=== PATIENT | female | born 1935 | race Two or more races ===

== ENCOUNTER 2016-09-22 05:07 | Inpatient (IN) | payer MEDICARE, MEDICAID ==
[~2016-09-22] VITALS: Ht 167.6 cm; Wt 59.0 kg
--- NOTE | 2016-09-22 05:15 | NUR ---
RECEIVED PT VIA WHEEL CHAIR WITH HER SON FOR SURGERY TODAY . PT UMU X4 . SPEAKS AMHARIC . SON AT BED SIDE ALL THE TIME . ORIENTED PT AND HER SON OF POC SURROUNDING INCLUDING MYSELF . PRE OP CHECKLIST AND PRE OP ADMISSION DONE PER INFORMATION PROVIDE BY SON . PT DISABLE ALMOST 40 YEARS PER SON . HE IS TAKING CARE . HE SIGNS CONSENT . MOM AGREE WITH THIS SURGERY .MRSA AND BLOOD PRBC DONE ALL PRE OP NEEDS MET . WILL CONTINUE POC
[2016-09-22] MEDS ORDERED: SECONDARY IV SET 1 EA INFUS.SET MC ONE ×2 (05:40→16:39)
[2016-09-22] MEDS ORDERED: IV SET PRIMARY 1 EA INFUS.SET MC ONE (05:40)
[2016-09-22] MEDS ORDERED: CEFAZOLIN SODIUM/DEXTROSE,ISO 50 ML IV ONE (05:40)
[2016-09-22] MEDS ORDERED: IV LR 1000 ML 1,000 ML ONE ×2 (05:40→09:03)
[2016-09-22] MEDS ORDERED: BUPIVACAINE MPF 0.5% W/EPI INJ 30 ML VIAL ONE (06:10)
[2016-09-22] MEDS ORDERED: BACITRACIN 50000 UNITS/VIAL ONE (06:10)
[2016-09-22] MEDS ORDERED: FENTANYL PF 100MCG/2ML AMPUL ONE ×2 (06:26→08:51)
[2016-09-22] MEDS ORDERED: ROCURONIUM BROMIDE 50 MG/5 ML ONE (06:28)
[2016-09-22] MEDS ORDERED: TRANEXAMIC ACID 3,000 MG in SODIUM CHLORIDE IRRIG SOLUTION 70 ML IR ONE (07:30)
--- NOTE | 2016-09-22 07:50 | NUR ---
PT HAS WHEEL CHAIR WITH CLOTHES . LABEL AND GIVEN TO SON Addendum: 09/22/16 at 0612 by NORY RUIZ RN UNKNOWN DOSE FOR HYDROCODONE PER SON WILL FOLLOW UP
[2016-09-22] MEDS ORDERED: OMEP40CA37 PO (07:51)
[2016-09-22] MEDS ORDERED: BUPIVACAINE 0.5 % PF 150 MG/30 ML VIAL ONE (08:53)
[2016-09-22] MEDS ORDERED: HYDROMORPHONE 1 MG/1 ML DISP.SYRIN ONE ×2 (09:11→09:18)
[2016-09-22] MEDS ORDERED: SENNOSIDES 8.6 MG TABLET PO PRN (09:30)
[2016-09-22] MEDS ORDERED: BISACODYL SUPP (10 MG) 10 MG/SUPP.RECT SUPP.RECT RC PRN (09:30)
[2016-09-22] MEDS ORDERED: DOCUSATE SODIUM 250 MG CAPSULE PO PRN (09:30)
[2016-09-22] MEDS ORDERED: ZOLPIDEM TARTRATE 5 MG TABLET PO PRN (09:30)
--- NOTE | 2016-09-22 09:45 | NUR ---
RN MS NOTES PATIENT RECEIVED FROM OR DEPARTMENT, ALERT AND ORIENTED, COMPLAINING OF PAIN ON LEFT SHOULDER, NO RESPIRATORY DISTRESS NOTED, VITAL SIGNS STABLE, NEEDS ATTENDED, PIV ON RFA #18G PATENT AND INTACT, RECEIVED ORDERS FROM DR. STERN, NOTED AND CARRIED OUT. ENSURE SAFETY AND COMFORT, CALL LIGHT WITHIN REACH, WILL CONTINUE TO MONITOR.
[2016-09-22 09:50] VITALS: BP 121/71
[2016-09-22] MEDS ORDERED: IV SET PRIMARY PUMP SET 1 EA INFUS.SET MC ONE (10:24)
[2016-09-22] MEDS: HYDROCODONE/APAP 5/325MG 1 EACH TABLET PO PRN ×2 (10:29→17:34)
[2016-09-22] MEDS: IV D5/0.45 NACL 1,000 ML IV PRN ×2 (10:35→23:44)
[2016-09-22 10:47] LABS: BASOPHILS % (AUTO) 0.3 % (0.0-2.0); EOSINOPHILS % (AUTO) 0.3 % (0.0-6.0); HEMATOCRIT 35 % (33-45); HEMOGLOBIN 11.6 g/dL (11.5-14.8); LYMPHOCYTES # (AUTO) 0.8 /CMM (0.8-4.8); MEAN CORPUSCULAR HEMOGLOBIN 28 PG (26.0-33.0); MEAN CORPUSCULAR HGB CONC 33 g/dl (31.0-36.0); MEAN CORPUSCULAR VOLUME 85 fL (82-100); MONOCYTES # (AUTO) 0.1 /CMM (0.1-1.30); MONOCYTES % (AUTO) 2.2 % (2.0-12.0); NEUTROPHILS # (AUTO) 4.3 /CMM (1.8-8.9); NEUTROPHILS % (AUTO) 82.2 % (43.0-81.0); PLATELET COUNT (AUTO) 251 /CMM (150-450); RDW COEFFICIENT OF VARIATION 14.7 (11.5-15.0); RED BLOOD CELL COUNT(AUTO) 4.13 MIL/uL (4.0-5.2); WHITE BLOOD COUNT (AUTO) 5.3 K/uL (4.3-11.0)
--- NOTE | 2016-09-22 13:00 | NUR ---
RN MS NOTES PATIENT SEEN BY DR. ARCINIEGA, INFORMED OF 2 UNITS OF RBC ORDER, AND H&H RESULT, PER MD, DISREGARD BLOOD TRANSFUSION ORDER.
[2016-09-22] MEDS: ACETAMINOPHEN 325 MG TABLET PO PRN (14:41)
[2016-09-22] MEDS: ANCEF 1 GM/50 ML D5W IV SCH ×4 (16:41→22:43)
[2016-09-22] MEDS ORDERED: Z GUARD REMEDY 2 OZ OINT TP PRN (17:30)
--- NOTE | 2016-09-22 18:50 | NUR ---
RN MS NOTES PATIENT IN BED, ALERT AND ORIENTED, MARTINIQUAIS SPEAKING, NO RESPIRATORY DISTRESS, PATIENT'S PAIN LEVEL 2/10 ON LEFT SHOULDER, ABLE TO TOLERATE PAIN AT THIS TIME, REFUSES MEDICATION, PATIENT TURNED AND REPOSITIONED SCHEDULED, NEEDS ATTENDED AND MET, IV ON RIGHT FA PATENT AND INTACT, PATIENT NOTED WITH LEFT BUTTOCK WOUND, CLEANSED WITH NS AND COVERED WITH MEPILEX, Z-GUARD APPLIED ON THE SURROUNDING AREA FOR SKIN MANAGEMENT, SAFETY MEASURES IN PLACED, CALL LIGHT WITHIN REACH, WILL CONTINUE TO MONITOR.
--- NOTE | 2016-09-22 19:30 | NUR ---
MS RN INITIAL NOTE RECEIVED PT AWAKE AND ALERT, ORIENTED X3 WITH EPISODES OF CONFUSION, PT CURRENTLY HAS NO PAIN OR RESPIRATORY DISTRESS, CLEAN/DRY AND COMFORTABLE, WILL CONTINUE TO MONITOR CLOSELY.
[2016-09-22 20:00] VITALS: BP 145/88
[2016-09-22] MEDS ORDERED: diphenhydrAMINE HCL 25 MG CAPSULE PO PRN (22:00)
[2016-09-22] MEDS ORDERED: HYDROCODONE/APAP 10/325MG 1 EA TABLET PO PRN (22:00)
[2016-09-22] MEDS: ONDANSETRON HCL/PF 4 MG/2 ML VIAL IV PRN (23:53)
--- NOTE | 2016-09-23 | NUR ---
RN NOTES: PATIENT COMPLAINED OF NAUSEA. ADMINISTERED PRN ZOFRAN 4 MG IV. WILL CONT TO MONITOR.
[2016-09-23] MEDS: MORPHINE SULFATE INJ 2 MG/ML DISP.SYRIN IV PRN ×2 (03:33→10:10)
[2016-09-23] MEDS: ONDANSETRON HCL/PF 4 MG/2 ML VIAL IV PRN ×2 (06:04→17:11)
--- NOTE | 2016-09-23 06:51 | NUR ---
MS CLOSING NOTE PT REMAINED STABLE DURING PARIMUTUEL CLERK, NO SIGNIFICANT CHANGES NOTED IN PT'S CONDITION, ALL NEEDS HAVE BEEN MET, WILL ENDORSE TO INCOMING NURSE FOR TRINITY.
[2016-09-23 07:26] LABS: BASOPHILS % (AUTO) 0.3 % (0.0-2.0); HEMATOCRIT 33 % (33-45); HEMOGLOBIN 11.2 g/dL (11.5-14.8); LYMPHOCYTES # (AUTO) 1.1 /CMM (0.8-4.8); LYMPHOCYTES % (AUTO) 10.5 % (20.0-44.0); MEAN CORPUSCULAR HEMOGLOBIN 29 PG (26.0-33.0); MEAN CORPUSCULAR HGB CONC 34 g/dl (31.0-36.0); MEAN CORPUSCULAR VOLUME 85 fL (82-100); MONOCYTES # (AUTO) 0.8 /CMM (0.1-1.30); MONOCYTES % (AUTO) 7.9 % (2.0-12.0); NEUTROPHILS # (AUTO) 8.5 /CMM (1.8-8.9); NEUTROPHILS % (AUTO) 81.3 % (43.0-81.0); PLATELET COUNT (AUTO) 295 /CMM (150-450); RDW COEFFICIENT OF VARIATION 14.9 (11.5-15.0); RED BLOOD CELL COUNT(AUTO) 3.93 MIL/uL (4.0-5.2); WHITE BLOOD COUNT (AUTO) 10.5 K/uL (4.3-11.0)
[2016-09-23] MEDS: PANTOPRAZOLE 40 MG TABLET.DR PO SCH (07:38)
[2016-09-23 08:00] VITALS: BP 117/73
[2016-09-23 08:02] LABS: CALCIUM, SERUM 8.3 mg/dL (8.5-10.1); CREATININE 0.7 mg/dL (0.6-1.3); MAGNESIUM 1.7 mg/dL (1.8-2.4); PHOSPHORUS 3.7 mg/dL (2.5-4.9); POTASSIUM 4.5 mmol/L (3.5-5.1)
--- NOTE | 2016-09-23 08:23 | NUR ---
RN AM NOTES PATIENT RECEIVED IN BED, DROWSY, BUT EASILY AROUSABLE, A LITTLE NAUSEOUS, ZOFRAN GIVEN THIS MORNING. ABLE TO TOLERATE ONE PILL, BUT HAD ONE EPISODE OF CLEAR EMESIS THIS MORNING. ATTEMPTING TO EAT A LITTLE BREAKFAST SLOWLY. WILL CONTINUE TO MONITOR.
[2016-09-23] MEDS: DOCUSATE SODIUM 100 MG CAPSULE PO SCH ×2 (09:00→16:57)
[2016-09-23] MEDS: ASPIRIN EC 325 MG TABLET.DR PO SCH (09:17)
[2016-09-23] MEDS: Z GUARD REMEDY 2 OZ OINT TP SCH ×2 (09:22→09:26)
--- NOTE | 2016-09-23 10:18 | NUR ---
WOUND CARE CONSULT: PT PRESENTS WITH SACRAL ULCER, PRESENT ON ADMISSION AND RT 2ND TOE SCAB, ALSO PRESENT ON ADMISSION. RECOMMENDATIONS MADE FOR SACRAL ULCER AND SKIN PROTECTION. DISCUSSED WITH NURSING STAFF. PT ON RUPERTO ISOFLEX LOW AIRLOSS BED. ALL SKIN PROTECTION MEASURES IN PLACE. IN AGREEMENT WITH PLAN OF CARE. Addendum: 09/23/16 at 1024 by KELSIE SANCHEZ DPM CONSULT CALLED TO DR ESPINOZA BY DR MARTHA MORENO FOR RT 2ND TOE. Addendum: 09/23/16 at 1025 by KELSIE SANCHEZ Amended: Links added.
[2016-09-23] MEDS ORDERED: HYDROGEL DRESSING 90 GM TUBE TP PRN (10:30)
[2016-09-23] MEDS ORDERED: SECONDARY IV SET 1 EA INFUS.SET MC ONE (13:34)
[2016-09-23] MEDS: Magnesium 1GM/D5W 100ML PREMIX 100 ML IV SCH ×2 (13:41→13:42)
[2016-09-23 16:00] VITALS: BP 117/69
[2016-09-23] MEDS: HYDROGEL DRESSING 90 GM TUBE TP SCH (16:26)
--- NOTE | 2016-09-23 17:14 | NUR ---
PATIENT STILL WITH NO BOWEL MOVEMENT, ENCOURAGED TO TAKE COLACE, PATIENT AGREED. PATIENT COMPLAINED OF NAUSEA AND HEADACHE, ADMINISTERED MEDICATION ORDERED AND NEEDED. ENCOURAGED PATIENT TO EAT, WANTS TO EAT SLOWLY. TOLERATING IV FLUIDS WELL, CHANGED DRESSING AT IV SITE BECAUSE SOILED. WOUND CARE AND SPONGE BATH RENDERED. PATIENT IN STABLE CONDITION, SAFELY IN BED WITH CALL LIGHT, PHONE AND SIDE TABLE WITHIN REACH. 2 1/2 SIDE RAILS UP FOR SAFETY. WILL CONTINUE TO MONITOR.
[2016-09-23] MEDS: ACETAMINOPHEN 325 MG TABLET PO PRN (17:19)
--- NOTE | 2016-09-23 19:09 | NUR ---
RN PM NOTES PATIENT IN BED ASLEEP, BUT FULLY AROUSABLE, TOLERATED PIV FLUIDS, WAS ABLE TO EAT LITTLE BITS OF FOOD THROUGHOUT DAY. NO COMPLAINTS OF PAIN, NAUSEA INTERMITTENTLY, MEDICATION ADMINISTERED ORDERED. WILL ENDORSE TO NEXT SHIFT.
--- NOTE | 2016-09-23 19:30 | NUR ---
MS RN INITIAL NOTE RECEIVED PT COMFORTABLY SLEEPING, EASILY AROUSED, ORIENTED X3, ARABIC SPEAKING MOSTLY, NO COMPLAIN OF PAIN, LUNGS SOUND CLEAR ON AUSCULTATION, NO RESPIRATORY DISTRESS NOTED DURING PHYSICAL ASSESSMENT, PT IS CLEAN/DRY, SAFETY MEASURES WILL BE MAINTAINED AT ALL TIMES, NEEDS WILL BE ANTICIPATED AND ATTENDED TO PROMPTLY.
[2016-09-23 20:00] VITALS: BP_SYST 103; BP_SYST 125; BP_DIAS 57; BP_DIAS 61
--- NOTE | 2016-09-23 22:24 | NUR ---
PT IS CURRENTLY SLEEPING NO SIGNS OF PAIN OR RESPIRATORY DISTRESS NOTED, REPORT GIVEN TO SANDOR SOTELO FOR TRINITY.
--- NOTE | 2016-09-23 22:30 | NUR ---
MS/RN NOTES RECEIVED PT ASLEEP, HOB ELEVATED. ON ROOM AIR, NO S/S OF DISTRESS OR PAIN NOTED. ON 2LPM O2 VIA NC. DRESSING TO LEFT SHOULDER C/D/I, MD TO CHANGE TOMORROW. IV TO RIGHT FA RUNNING IVF ORDERED. NO S/S OF N/V AT THIS TIME. BED IN LOW/LOCKED POSITION WITH CALL LIGHT IN REACH. BED RAILS UPX2 AND ALARM ON. WILL CONTINUE TO MONITOR
--- NOTE | 2016-09-24 03:45 | NUR ---
MS/RN NOTES PT AWAKE, SLING TO LEFT ARM REMAINS IN PLACE. WARM BLANKET AND SANDWICH PROVIDED. ADJUSTED BED FOR COMFORT. MADE PT COMFORTABLE AND PT ABLE TO FALL BACK ASLEEP. OFFERED PAIN MEDICATION BUT PT REFUSING AT THIS TIME. WILL CONTINUE TO MONITOR
--- NOTE | 2016-09-24 06:50 | NUR ---
MS/RN CLOSING NOTES PT ASLEEP, EASILY AROUSABLE TO NAME. ON 2LPM 02 VIA NC, NO DISTRESS NOTED. BREATHING IS EVEN AND UNLABORED. MONGOLIAN SPEAKING BUT UNDERSTANDS SOME BENGALI. ENCOURAGED PT TO USE INCENTIVE SPIROMETER WHILE AWAKE DURING THE NIGHT. SKIN CARE PERFORMED TO SACRAL WOUND. TURNED/REPOSITIONED Q2H AND PRN. OFFLOADED EXTREMITIES. DRESSING TO LEFT SHOULDER REMAINS C/D/I WITH LEFT ARM IN SPLINT. IV TO RIGHT FA PATENT AND INTACT RUNNING IVF ORDERED. SANDWICH PROVIDED DURING SHIFT WITH NO COMPLAINTS OF N/V. NO COMPLAINTS OF PAIN AT THIS TIME. BED IN LOW/LOCKED POSITION WITH CALL LIGHT IN REACH. BED RAILS UPX2 WITH ALARM ON. WILL ENDORSE TO AM SHIFT TRINITY.
[2016-09-24 07:41] LABS: BASOPHILS % (AUTO) 0.2 % (0.0-2.0); EOSINOPHILS % (AUTO) 0.2 % (0.0-6.0); HEMATOCRIT 30 % (33-45); HEMOGLOBIN 9.9 g/dL (11.5-14.8); LYMPHOCYTES # (AUTO) 1.1 /CMM (0.8-4.8); LYMPHOCYTES % (AUTO) 11.6 % (20.0-44.0); MEAN CORPUSCULAR HEMOGLOBIN 29 PG (26.0-33.0); MEAN CORPUSCULAR HGB CONC 33 g/dl (31.0-36.0); MEAN CORPUSCULAR VOLUME 86 fL (82-100); MONOCYTES # (AUTO) 0.6 /CMM (0.1-1.30); MONOCYTES % (AUTO) 7.1 % (2.0-12.0); NEUTROPHILS # (AUTO) 7.3 /CMM (1.8-8.9); NEUTROPHILS % (AUTO) 80.9 % (43.0-81.0); PLATELET COUNT (AUTO) 232 /CMM (150-450); RDW COEFFICIENT OF VARIATION 14.8 (11.5-15.0); RED BLOOD CELL COUNT(AUTO) 3.48 MIL/uL (4.0-5.2); WHITE BLOOD COUNT (AUTO) 9.1 K/uL (4.3-11.0)
[2016-09-24 08:00] VITALS: BP 123/69
--- NOTE | 2016-09-24 08:00 | NUR ---
RN Notes Received on bed awake, alert and oriented. Not in any form of distress. Denies headache or dizziness. With 02 inhalation at 2 lpm via nasal canula saturating at 97% with no SOB. 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 no bleeding noted. Able to move left upper extremity, still with pain. with good sensation and pulse on left upper extremity. with ongoing IVF of D5 1/2 NS at 75 cc/hr infusing well. IV access on right forearm patent and intact. no complain at this time.
[2016-09-24 08:03] LABS: CALCIUM, SERUM 7.6 mg/dL (8.5-10.1); CREATININE 0.8 mg/dL (0.6-1.3); MAGNESIUM 2.1 mg/dL (1.8-2.4); PHOSPHORUS 3.3 mg/dL (2.5-4.9); POTASSIUM 3.5 mmol/L (3.5-5.1)
[2016-09-24] MEDS: DOCUSATE SODIUM 100 MG CAPSULE PO SCH ×3 (09:00→17:00)
[2016-09-24] MEDS: PANTOPRAZOLE 40 MG TABLET.DR PO SCH (09:31)
[2016-09-24] MEDS: ASPIRIN EC 325 MG TABLET.DR PO SCH (09:31)
[2016-09-24] MEDS: Z GUARD REMEDY 2 OZ OINT TP SCH (09:32)
[2016-09-24] MEDS: HYDROGEL DRESSING 90 GM TUBE TP SCH (09:32)
[2016-09-24] MEDS: IV D5/0.45 NACL 1,000 ML IV PRN ×2 (09:36→23:33)
[2016-09-24 16:00] VITALS: BP 113/58
--- NOTE | 2016-09-24 18:50 | NUR ---
RN Notes Resting well. needs anticipated. no untoward symptom noted. Refused PT today, son at the bedside aware. Will endorse to shift supervisor melting nurse for the continuity of care.
--- NOTE | 2016-09-24 19:30 | NUR ---
RN NOTES RECEIVED PT IN BED,AWAKE,VERBALLY RESPONSIVE TO STIMULI. DENIES ANY PAIN WHEN ASKED. ON OXYGEN AT 2LPM VIA NC. NO ACUTE RESP. DISTRESS NOTED.RIGHT FOREARM IV ACCESS NOTED, INTACT AND PATENT WITH IVF INFUSING WELL AT 75 CC/ HR. CLEAN AND DRY. FAMILY ON THE BEDSIDE. WILL CONTINUE TO MONITOR.
[2016-09-24 20:00] VITALS: BP 108/66
[2016-09-25 08:00] VITALS: BP 133/72
[2016-09-25] MEDS: HYDROGEL DRESSING 90 GM TUBE TP SCH (09:00)
[2016-09-25] MEDS: PANTOPRAZOLE 40 MG TABLET.DR PO SCH (09:36)
[2016-09-25] MEDS: DOCUSATE SODIUM 100 MG CAPSULE PO SCH (09:36)
[2016-09-25] MEDS: ASPIRIN EC 325 MG TABLET.DR PO SCH (09:36)
--- NOTE | 2016-09-25 13:45 | NUR ---
PT D/C'D PER AMBULANCE IN STABLE CONDITION....D/C WITH RX X 1 ON NORCO...IV D/C'D AT THIS TIME..NO HEMATOMA NOTED...REPORT ATTEMPTED X 2 TO [facility]....ENVELOPE FOLDING MACHINE ADJUSTER KEPT ON HOLD X 15 MIN....HUNG UP AND CALLED AGAIN AND WAS KEPT ON HOLD...CHARGE NURSE INFORMED AND STATES SEND HER ON OUT...WE WILL ATTEMPT LATER
== END 2016-09-25 13:30 | DRG 483 ==
LOC: DS 05:07 → MED 09:31
PROVIDERS: ADMIT Specialist; ATTEND Specialist
PROC: 0RRK00Z Replacement of Left Shoulder Joint with Reverse Ball and Socket Synthetic Substitute, Open Approach (ICD-10-PCS; principal; 2016-09-22 07:09)
DX: M12.812 Other specific arthropathies, not elsewhere classified, left shoulder (principal); K21.9 Gastro-esophageal reflux disease without esophagitis; E66.9 Obesity, unspecified; E83.42 Hypomagnesemia; I70.90 Unspecified atherosclerosis; L89.152 Pressure ulcer of sacral region, stage 2; G35 Multiple sclerosis; S81.802A Unspecified open wound, left lower leg, initial encounter; S81.801A Unspecified open wound, right lower leg, initial encounter; S43.002A Unspecified subluxation of left shoulder joint, initial encounter; Z96.649 Presence of unspecified artificial hip joint; Z68.21 Body mass index [BMI] 21.0-21.9, adult; Z71.6 Tobacco abuse counseling; Y92.009 Unspecified place in unspecified non-institutional (private) residence as the place of occurrence of the external cause; Y99.9 Unspecified external cause status; Y93.9 Activity, unspecified; X58.XXXA Exposure to other specified factors, initial encounter
CPT/HCPCS: 36415; 80048-TC; 83735-TC; 84100-TC; 85025-TC; 86850-TC; 86921-TC; 87081-TC; 88305-TC; 88311-TC; 94799-TC; 97001-TC; 97003-TC; 97110-TC; 97530-TC; A4217; A6248; A6402; J0690; J1100; J1170; J2270; J2405; J2704; J2710; J3010; J3475; J3490; J7060; J7120

== ENCOUNTER 2017-03-01 10:09 | Inpatient (IN) | payer MEDICARE, MEDICAID ==
[~2017-03-01] VITALS: Ht 165.1 cm; Wt 56.7 kg
[~2017-03-01 10:09] MED LIST: OMEP40CA37 PO
--- NOTE | 2017-03-01 10:58 | NUR ---
FOR MEDICAL CLEARANCE FOR GPS ADMISSION, NAD NOTED, VSS. WAITING FOR EVAL.
[2017-03-01 11:00] LABS: BASOPHILS % (AUTO) 0.5 % (0.0-2.0); EOSINOPHILS # (AUTO) 0.1 /CMM (0.0-0.7); HEMATOCRIT 38 % (33-45); HEMOGLOBIN 13.1 g/dL (11.5-14.8); LYMPHOCYTES # (AUTO) 1.3 /CMM (0.8-4.8); LYMPHOCYTES % (AUTO) 18.5 % (20.0-44.0); MEAN CORPUSCULAR HEMOGLOBIN 30 PG (26.0-33.0); MEAN CORPUSCULAR HGB CONC 35 g/dl (31.0-36.0); MEAN CORPUSCULAR VOLUME 86 fL (82-100); MONOCYTES # (AUTO) 0.4 /CMM (0.1-1.30); MONOCYTES % (AUTO) 5.4 % (2.0-12.0); NEUTROPHILS # (AUTO) 5.5 /CMM (1.8-8.9); NEUTROPHILS % (AUTO) 73.6 % (43.0-81.0); PLATELET COUNT (AUTO) 238 /CMM (150-450); RDW COEFFICIENT OF VARIATION 14.8 (11.5-15.0); RED BLOOD CELL COUNT(AUTO) 4.41 MIL/uL (4.0-5.2); WHITE BLOOD COUNT (AUTO) 7.3 K/uL (4.3-11.0)
[2017-03-01 11:11] LABS: CALCIUM, SERUM 8.8 mg/dL (8.5-10.1); CARBON DIOXIDE 29 mmol/L (21-32); CHLORIDE 109 mmol/L (98-107); CREATININE 0.7 mg/dL (0.6-1.3); GLUCOSE 94 mg/dL (74-106); SODIUM SERUM 142 mmol/L (136-145); UREA NITROGEN, BLOOD 18 mg/dL (7-18)
[2017-03-01 11:16] LABS: ALANINE AMINOTRANSFERASE 19 U/L (12-78); ALBUMIN 3.3 g/dL (3.4-5.0); ALKALINE PHOSPHATASE 123 U/L (46-116); ASPARTATE AMINOTRANSFERASE 17 U/L (15-37); BILIRUBIN,DIRECT 0.1 mg/dL (0.0-0.2); BILIRUBIN,TOTAL 0.3 mg/dL (0.2-1.0); TOTAL PROTEIN, SERUM 6.8 g/dL (6.4-8.2)
[2017-03-01 11:22] LABS: ACETAMINOPHEN 0 ug/ml (10-30); ALCOHOL, BLOOD < 3 mg/dL (0-0)
[2017-03-01] MEDS ORDERED: IBUP-1955 PO (11:35)
[2017-03-01] MEDS ORDERED: IV D5/0.45 NACL 1,000 ML IV PRN ×2 (12:13→15:28)
--- NOTE | 2017-03-01 12:23 | NUR ---
URINE SENT TO LAB
[2017-03-01] MEDS ORDERED: ZOLPIDEM TARTRATE 5 MG TABLET PO PRN ×3 (12:30→15:30)
[2017-03-01] MEDS ORDERED: MAGNESIUM HYDROXIDE 30 ML UDC PO PRN ×3 (12:30→15:30)
[2017-03-01] MEDS ORDERED: ACETAMINOPHEN 325 MG TABLET PO PRN ×2 (12:30→15:30)
[2017-03-01] MEDS ORDERED: ONDANSETRON HCL/PF 4 MG/2 ML VIAL IVP PRN ×2 (12:30→15:30)
[2017-03-01] MEDS ORDERED: MAG HYDROX/AL HYDROX/SIMETH 30 ML UDC PO PRN ×3 (12:30→15:30)
[2017-03-01] MEDS ORDERED: Z GUARD REMEDY 2 OZ OINT TP PRN ×3 (12:30→15:30)
[2017-03-01] MEDS ORDERED: HYDROCODONE/APAP 5/325MG 1 EACH TABLET PO PRN ×2 (12:30→15:30)
[2017-03-01 12:32] LABS: APPEARANCE,URINE Slightly Cloudy (CLEAR); BILIRUBIN,URINE Negative (NEGATIVE); BLOOD, URINE Moderate Ery/uL (NEGATIVE); COLOR,URINE Yellow (YELLOW); KETONES,URINE Negative (NEGATIVE); LEUKOCYTE ESTERASE ,URINE Small (NEGATIVE); NITRITE, URINE Negative (NEGATIVE); PH,URINE 6.5 (5.0-8.0); PROTEIN,URINE 100 mg/dl (NEGATIVE); UGLUCOSE Negative (NEGATIVE)
[2017-03-01 12:50] LABS: BACTERIA,URINE Many /HPF (None Seen); SQUAMOUS EPITHELIAL CELL,UR Moderate /HPF (None Seen)
[2017-03-01 13:05] LABS: AMYLASE 91 U/L (25-115); LIPASE 239 U/L (73-393)
[2017-03-01] MEDS ORDERED: SULFAMETH/TRIMETH 800/160 MG 1 UDTAB TABLET PO ONE (13:30)
--- NOTE | 2017-03-01 13:44 | NUR ---
REPORT GIVEN TO
--- NOTE | 2017-03-01 14:30 | NUR ---
MS RN NOTES RECEIVED PT FROM ER, DX FALL BY DR. THOMAS. WITH HX OF MULTIPLE SCLEROSIS, COMPLAINT OF WEAKNESS, AO X 2, AFGHAN SPEAKING, CAN MOVE ARMS, CAN SWALLOW, NEEDS ASSIST IN TRANSFER FROM CHAIR TO BED, ON ROOM AIR, NO SOB, DENIES PAIN, LEFT FA G22 WITH D5 1/2 NS AT 75 ML STARTED, SITE CLEAR. SEE NURSING FLOWSHEET FOR SKIN ISSUES, PHOTOS TAKEN, CARDIAC DIET, NEEDS ASSIST IN TURNING, UNIT ORIENTATION DONE AND USE OF CALL LIGHT. SAFETY MEASURES IN PLACE. ASHLEIGH CONT TO MONITOR.
[2017-03-01 15:00] VITALS: BP 147/79
[2017-03-01] MEDS: IV D5/0.45 NACL 1,000 ML IV PRN (15:17)
[2017-03-01 15:20] VITALS: BP 147/79
[2017-03-01] MEDS: ACETAMINOPHEN 325 MG TABLET PO PRN (15:44)
[2017-03-01 16:00] VITALS: BP 147/79
[2017-03-01] MEDS: CEFTRIAXONE 1 G in IV D5W 50 ML IV SCH (16:47)
--- NOTE | 2017-03-01 16:47 | NUR ---
MS RN NOTES STARTED ROCEPHIN IV.
[2017-03-01 18:00] VITALS: BP 147/79
--- NOTE | 2017-03-01 18:43 | NUR ---
MS RN NOTES PT RESTING COMFORTABLY. ALL NEEDS MET AT THIS TIME. IVF INFUSING WELL,NOT IN ANY DISTRESS. NO OTHER SIGNIFICANT CHANGE. SAFETY MEASURES IN PLACE. BED LOW LOCKED POSITION. CALL LIGHT WITHIN REACH. WILL ENDORSE TO NEXT SHIFT FOR [facility].
--- NOTE | 2017-03-01 19:05 | NUR ---
MS RN OPENING NOTES: RECEIVED PT AND IS RESTING COMFORTABLY IN BED. HOB ELEVATED. PT IS MALAWIAN SPEAKING AND UNDERSTANDING ONLY. PT CAN ONLY SPEAK A LITTLE BIT OF CYMRAES. PT IS A/OX2. PT APPEARS TO BE DEPRESSED. PT HAS L FOREARM #22G AND IS BEING INFUSED WITH D5 1/2 AT 75ML/HR. NO SOB OR S/S OF DISTRESS NOTED AT THIS TIME. CALL LIGHT WITHIN PT'S REACH. BED KEPT IN LOW, LOCKED POSITION AND SIDE RAILS X 2 UP. PT KEPT COMFORTABLE. WILL CONTINUE TO MONITOR PT.
[2017-03-01 20:00] VITALS: BP 108/55
[2017-03-01 20:04] VITALS: BP 108/55
[2017-03-02] MEDS: IV D5/0.45 NACL 1,000 ML IV PRN ×2 (05:11→21:22)
[2017-03-02 06:28] LABS: BASOPHILS % (AUTO) 0.3 % (0.0-2.0); EOSINOPHILS # (AUTO) 0.2 /CMM (0.0-0.7); EOSINOPHILS % (AUTO) 3.2 % (0.0-6.0); HEMATOCRIT 36 % (33-45); HEMOGLOBIN 11.9 g/dL (11.5-14.8); LYMPHOCYTES # (AUTO) 1.6 /CMM (0.8-4.8); LYMPHOCYTES % (AUTO) 21.7 % (20.0-44.0); MEAN CORPUSCULAR HEMOGLOBIN 29 PG (26.0-33.0); MEAN CORPUSCULAR HGB CONC 34 g/dl (31.0-36.0); MEAN CORPUSCULAR VOLUME 87 fL (82-100); MONOCYTES # (AUTO) 0.4 /CMM (0.1-1.30); MONOCYTES % (AUTO) 5.3 % (2.0-12.0); NEUTROPHILS # (AUTO) 5.1 /CMM (1.8-8.9); NEUTROPHILS % (AUTO) 69.5 % (43.0-81.0); PLATELET COUNT (AUTO) 225 /CMM (150-450); RDW COEFFICIENT OF VARIATION 16.2 (11.5-15.0); WHITE BLOOD COUNT (AUTO) 7.4 K/uL (4.3-11.0)
--- NOTE | 2017-03-02 06:37 | NUR ---
MS RN CLOSING NOTES: ALL NEEDS WERE ATTENDED AND ANTICIPATED FOR. OVERTIME, PT APPEARS LESS DEPRESSED. SHE WAS SEEN SMILING AND COOPERATIVE WHEN BEING TALKED TO. PT IS ONLY SLOVAK SPEAKING AND UNDERSTANDING. PT CAN ONLY SAY A FEW THINGS IN SENEGALESE. PT IS A/OX2. PT HAS L FOREARM #22G AND IS BEING INFUSED WITH D5 1/2 NS AT 75ML/HR. NO SOB OR S/S OF DISTRESS NOTED AT THIS TIME. EKG TAKEN BY RT THIS MORNING. CALL LIGHT WITHIN PT'S REACH. BED KEPT IN LOW, LOCKED POSITION, AND SIDE RAILS X 2 UP. PT KEPT CLEAN, DRY, AND COMFORTABLE. PT DOES NOT WANT TO CHANGE INTO THE GOWN. WILL ENDORSE TO AM NURSE FOR TRINITY.
[2017-03-02 07:06] LABS: ALANINE AMINOTRANSFERASE 15 U/L (12-78); ALBUMIN 2.8 g/dL (3.4-5.0); ALKALINE PHOSPHATASE 96 U/L (46-116); ASPARTATE AMINOTRANSFERASE 17 U/L (15-37); BILIRUBIN,TOTAL 0.3 mg/dL (0.2-1.0); CALCIUM, SERUM 8.3 mg/dL (8.5-10.1); CARBON DIOXIDE 25 mmol/L (21-32); CHLORIDE 108 mmol/L (98-107); CREATININE 0.7 mg/dL (0.6-1.3); GLUCOSE 92 mg/dL (74-106); PHOSPHORUS 3.6 mg/dL (2.5-4.9); POTASSIUM 3.8 mmol/L (3.5-5.1); SODIUM SERUM 140 mmol/L (136-145); TOTAL PROTEIN, SERUM 5.7 g/dL (6.4-8.2); UREA NITROGEN, BLOOD 15 mg/dL (7-18)
--- NOTE | 2017-03-02 07:10 | NUR ---
RN MS NOTES PATIENT ALERT AND ORIENTED X2-3, DENIES PAIN AT THIS TIME, BREATHING EVEN AND UNLABORED, NO DISTRESS NOTED, PIV PATENT AND FLUSHES WELL, IVF INFUSING AT 75ML/HR, TURNED AND REPOSITIONED, NEEDS ATTENDED AND MET, SAFETY MEASURES IN PLACED, CALL LIGHT WITHIN REACH, WILL CONTINUE TO MONITOR.
[2017-03-02 08:00] VITALS: BP 143/77
[2017-03-02] MEDS: ACETAMINOPHEN 325 MG TABLET PO PRN (08:22)
[2017-03-02 09:16] LABS: CHOLESTEROL 163 mg/dL (<200); HDL CHOLESTEROL 58 mg/dL (40-60); LDL 89 mg/dL (0-99); TRIGLYCERIDES 66 mg/dL (30-150)
[2017-03-02] MEDS: HYDROCODONE/APAP 5/325MG 1 EACH TABLET PO PRN (13:03)
--- NOTE | 2017-03-02 13:25 | NUR ---
WOUND CARE CONSULT: PT PRESENTS WITH RT LOWER BUTTOCK AND SACRAL SCARRING. PT ABLE TO ASSIST WITH TURNING AND REPOSITIONING IN BED. ALL SKIN PROTECTION MEASURES IN PLACE AND DISCUSSED WITH NURSING STAFF. WILL SEE PRN. ZARCO IN AGREEMENT WITH PLAN OF CARE.
[2017-03-02 16:00] VITALS: BP 113/68
[2017-03-02] MEDS: CEFTRIAXONE 1 G in IV D5W 50 ML IV SCH (16:44)
--- NOTE | 2017-03-02 18:54 | NUR ---
RN MS NOTES PATIENT ALERT AND ORIENTED, IN NO DISTRESS, IVF INFUSING AND TOLERATING WELL, ALL DUE MEDS GIVEN ORDERED, PT EVAL COMPLETED TODAY, ASSISTED PATIENT WITH TURNING AND REPOSITIONING, MEPILEX APPLIED TO SACRAL AREA FOR PROTECTION, NEEDS ATTENDED AND MET, CALL LIGHT WITHIN REACH, SAFETY MEASURES IN PLACED, WILL ENDORSE TO FORECLOSURE [place] FOR TRINITY.
--- NOTE | 2017-03-02 19:30 | NUR ---
RN NOTES RECEIVED PATIENT IN BED AWAKE, AO X 2, ABLE TO MAKE NEEDS KNOWN. NO ACUTE DISTRESS NOTED. DENIES ANY PAIN AT THIS TIME. IV SITE PATENT, INTACT; IVF INFUSING ORDERED. SAFETY REMINDERS GIVEN. ON LOW BED WITH BILATERAL UPPER SIDE RAILS UP. CALL LIGHT WITHIN EASY REACH. WILL CONTINUE TO MONITOR.
[2017-03-02 20:00] VITALS: BP_SYST 120; BP_SYST 188; BP_DIAS 74; BP_DIAS 78
[2017-03-02] MEDS: ONDANSETRON HCL/PF 4 MG/2 ML VIAL IVP PRN (21:17)
[2017-03-02 22:00] VITALS: BP 133/74
[2017-03-03] MEDS: HYDROCODONE/APAP 5/325MG 1 EACH TABLET PO PRN ×3 (03:09→15:13)
--- NOTE | 2017-03-03 07:00 | NUR ---
RN NOTES PATIENT ASLEEP, EASILY AROUSABLE. RESPIRATIONS EVEN. NO SIGNS OF PAIN NOTED. NEEDS ATTENDED. SAFETY PRECAUTIONS AND COMFORT MEASURES IN PLACE. WILL GIVE REPORT TO DAY SHIFT FOR CONTINUITY OF CARE.
--- NOTE | 2017-03-03 07:30 | NUR ---
RN OPENING NOTES RECEIVED PATIENT RESTING COMFORTABLY IN BED. PATIENT MONGOLIAN SPEAKING ONLY, UNDERSTANDS A LITTLE UKRAINIAN. NO ACUTE DISTRESS, NO SOB NOTED. IV SITE INTACT AND PATENT. KEPT PATIENT SAFE AND COMFORTABLE. BED IN LOW, LOCKED POSITION, SIDERAILS UP X2. CALL LIGHT IN REACH. WILL CONTINUE TO MONITOR ACCORDINGLY.
[2017-03-03 08:00] VITALS: BP 128/69
[2017-03-03] MEDS: ONDANSETRON HCL/PF 4 MG/2 ML VIAL IVP PRN (09:35)
[2017-03-03 11:51] LABS: BASOPHILS % (AUTO) 0.3 % (0.0-2.0); EOSINOPHILS % (AUTO) 0.4 % (0.0-6.0); HEMATOCRIT 39 % (33-45); HEMOGLOBIN 13.2 g/dL (11.5-14.8); LYMPHOCYTES # (AUTO) 0.2 /CMM (0.8-4.8); LYMPHOCYTES % (AUTO) 4.2 % (20.0-44.0); MEAN CORPUSCULAR HEMOGLOBIN 29 PG (26.0-33.0); MEAN CORPUSCULAR HGB CONC 33 g/dl (31.0-36.0); MEAN CORPUSCULAR VOLUME 87 fL (82-100); MONOCYTES # (AUTO) 0.2 /CMM (0.1-1.30); MONOCYTES % (AUTO) 2.8 % (2.0-12.0); NEUTROPHILS % (AUTO) 92.3 % (43.0-81.0); PLATELET COUNT (AUTO) 176 /CMM (150-450); RDW COEFFICIENT OF VARIATION 16.1 (11.5-15.0); RED BLOOD CELL COUNT(AUTO) 4.53 MIL/uL (4.0-5.2); WHITE BLOOD COUNT (AUTO) 5.4 K/uL (4.3-11.0)
[2017-03-03 12:01] LABS: CALCIUM, SERUM 8.3 mg/dL (8.5-10.1); CARBON DIOXIDE 22 mmol/L (21-32); CHLORIDE 106 mmol/L (98-107); CREATININE 0.8 mg/dL (0.6-1.3); GLUCOSE 106 mg/dL (74-106); POTASSIUM 3.6 mmol/L (3.5-5.1); SODIUM SERUM 140 mmol/L (136-145); UREA NITROGEN, BLOOD 11 mg/dL (7-18)
[2017-03-03 16:00] VITALS: BP 90/51
[2017-03-03] MEDS: CEFTRIAXONE 1 G in IV D5W 50 ML IV SCH (16:22)
[2017-03-03] MEDS: IV D5/0.45 NACL 1,000 ML IV PRN (16:23)
[2017-03-03 18:00] VITALS: BP 90/51
--- NOTE | 2017-03-03 19:30 | NUR ---
RN CLOSING NOTES PATIENT IN BED RESTING. NO ACUTE DISTRESS, NO SOB NOTED. ALL NEEDS ATTENDED AND PROVIDED. KEPT PATIENT SAFE AND COMFORTABLE. BED LOCKED, LOW POSITION, SIDERAILS UPX2, CALL LIGHT WITHIN REACH. ENDORSED TO SENIOR PROCESS ANALYST RN FOR TRINITY.
[2017-03-03 20:00] VITALS: BP 109/60
--- NOTE | 2017-03-03 20:00 | NUR ---
RN NOTES RECEIVED PATIENT IN BED, ALERT AND ORIENTED X2, CALM, NO SOB, TOLERATING ROOM AIR, SP02 94%, UPPER SORBIAN SPEAKING ONLY, DENIES ANY PAIN AT THIS TIME, NO RESTLESSNESS, LUNG SOUNDS ARE CLEAR, ABDOMEN SOFT AND NON-TENDER, LEFT ARM PERIPHERAL LINE IS PATENT AND INFUSING WELL, BED ALARM TURNED ON, NEEDS ATTENDED, CALL LIGHT WITHIN REACH
[2017-03-03 20:43] VITALS: BP 109/60
[2017-03-04] MEDS: IV D5/0.45 NACL 1,000 ML IV PRN (04:46)
[2017-03-04 06:41] LABS: BASOPHILS % (AUTO) 0.4 % (0.0-2.0); EOSINOPHILS # (AUTO) 0.1 /CMM (0.0-0.7); EOSINOPHILS % (AUTO) 1.3 % (0.0-6.0); HEMATOCRIT 34 % (33-45); HEMOGLOBIN 11.8 g/dL (11.5-14.8); LYMPHOCYTES # (AUTO) 1.5 /CMM (0.8-4.8); LYMPHOCYTES % (AUTO) 21.6 % (20.0-44.0); MEAN CORPUSCULAR HEMOGLOBIN 30 PG (26.0-33.0); MEAN CORPUSCULAR HGB CONC 34 g/dl (31.0-36.0); MEAN CORPUSCULAR VOLUME 87 fL (82-100); MONOCYTES # (AUTO) 0.4 /CMM (0.1-1.30); MONOCYTES % (AUTO) 6.4 % (2.0-12.0); NEUTROPHILS # (AUTO) 4.8 /CMM (1.8-8.9); NEUTROPHILS % (AUTO) 70.3 % (43.0-81.0); PLATELET COUNT (AUTO) 194 /CMM (150-450); RDW COEFFICIENT OF VARIATION 16.1 (11.5-15.0); RED BLOOD CELL COUNT(AUTO) 3.96 MIL/uL (4.0-5.2); WHITE BLOOD COUNT (AUTO) 6.9 K/uL (4.3-11.0)
--- NOTE | 2017-03-04 06:44 | NUR ---
RN NOTES PATIENT RESTING COMFORTABLY IN BED, EASILY AROUSEABLE, NO SOB, NO DISTRESS, NO COMPLAIN OF PAIN, NO ADVERSE CHANGE OF CONDITION DURING SHIFT, SLEPT FOR 7 HOURS, LEFT FA PERIPHERAL LINE IS PATENT AND INFUSING WELL, NEEDS ATTENDED, CALL LIGHT WITHIN REACH.
[2017-03-04 07:14] LABS: CALCIUM, SERUM 8.3 mg/dL (8.5-10.1); CARBON DIOXIDE 27 mmol/L (21-32); CHLORIDE 107 mmol/L (98-107); CREATININE 0.7 mg/dL (0.6-1.3); GLUCOSE 94 mg/dL (74-106); POTASSIUM 4.1 mmol/L (3.5-5.1); SODIUM SERUM 140 mmol/L (136-145); UREA NITROGEN, BLOOD 11 mg/dL (7-18)
[2017-03-04 08:00] VITALS: BP 113/59
--- NOTE | 2017-03-04 08:00 | NUR ---
AM RN NOTES RECEIVED PT AWAKE, IN STABLE CONDITION, NO SOB OR DISTRESS NOTED, WILL MONITOR.
--- NOTE | 2017-03-04 09:39 | NUR ---
PT SEEN BY MOODY ABRAMS
[2017-03-04] MEDS: ACETAMINOPHEN 325 MG TABLET PO PRN (12:02)
[2017-03-04] MEDS ORDERED: CEFT1FRO2 IV (12:56)
[2017-03-04] MEDS ORDERED: ACET325T53 PO (12:56)
[2017-03-04] MEDS: CEFTRIAXONE 1 G in IV D5W 50 ML IV SCH (15:17)
--- NOTE | 2017-03-04 16:52 | NUR ---
PT DISCHARGED OT [facility] IN STABLE CONDITION, NO SOB OR DISTRESS NOTED, NO PAIN OR DISCOMFORT, EDUCATIONS DONE AND INSTRUCTIONS GIVEN(TRANSLATED IN KYRGYZ BY MADHAVI HERNANDEZ) ALL BELONGINGS GIVEN AND PT LEFT FLOOR SAFELY WITH AMBULANCE, REPORT GIVEN TO EVITA SOTELO AT SNF AND PT'S SON INFORMED ABOUT TRANSFER.
== END 2017-03-04 16:46 | DRG 690 ==
LOC: ER 10:15 → MEDSG2 14:22
PROVIDERS: ADMIT Internal Medicine; ATTEND Internal Medicine
DX: N39.0 Urinary tract infection, site not specified (principal); E44.0 Moderate protein-calorie malnutrition; D68.59 Other primary thrombophilia; E88.09 Other disorders of plasma-protein metabolism, not elsewhere classified; G35 Multiple sclerosis; E78.5 Hyperlipidemia, unspecified; K21.9 Gastro-esophageal reflux disease without esophagitis; M06.9 Rheumatoid arthritis, unspecified; Z96.649 Presence of unspecified artificial hip joint; Z68.20 Body mass index [BMI] 20.0-20.9, adult; B96.89 Other specified bacterial agents as the cause of diseases classified elsewhere; R51 Headache
CPT/HCPCS: 36415; 80048-TC; 80053-TC; 80061-TC; 80076-TC; 80305; 81000-TC; 82150-TC; 83690-TC; 83735-TC; 84100-TC; 85025-TC; 87040-TC; 87081-TC; 87086-TC; 93307-TC; 97110-TC; 97112-TC; 97530-TC; A4606; G0480; J0696; J2405; J3490; J7030; J7060; Z7610

== ENCOUNTER 2020-08-19 11:18 | Emergency (ER) | payer MEDICARE, OTHER ==
[~2020-08-19] VITALS: Ht 170.2 cm; Wt 41.7 kg
[~2020-08-19 11:18] MED LIST changes: +ACET325T53 PO; +AMIN30LI2 PO; +ASCO500C18 PO; +ASCO500T20 PO; +ASPI-605 PO; +CHOL100044 PO; +CHOL200026 PO; +Calcium Carb 600MG /Vit D PO; +DOCU-141 PO; +HYDR-4354 PO; +MAGN400O6 PO; +MULT-1185 PO; +OMEP40CA13 PO; -OMEP40CA37 PO
[2020-08-19] MEDS ORDERED: KETOROLAC TROMETHAMINE INJ 30 MG/ML VIAL ONE (11:31)
[2020-08-19] MEDS ORDERED: TYL2T PO (11:32)
[2020-08-19] MEDS ORDERED: ACET-2605 PO (11:32)
[2020-08-19] MEDS ORDERED: MIRT7.5T10 PO (11:32)
[2020-08-19] MEDS ORDERED: CALC500T13 PO (11:32)
[2020-08-19] MEDS ORDERED: OMEG-167 PO (11:32)
[2020-08-19] MEDS ORDERED: ACET-868 PO (11:32)
[2020-08-19] MEDS ORDERED: ONDA-97 PO (11:32)
[2020-08-19] MEDS: KETOROLAC TROMETHAMINE INJ 60 MG/2 ML VIAL IM ONE (11:35)
--- NOTE | 2020-08-19 11:37 | NUR ---
LORRAINE FROM [facility], [place] C/O R SIDED NECK PAIN FOR 1 WEEK. PT EYES CLOSED NON VERBAL, MOANING FOR PAIN. RR EVEN & UNLABORED. VSS. PT SEEN & EVAL'D BY DR. JUNE. MEDICATED FOR PAIN. WILL CONT TO MONITOR.
[2020-08-19] MEDS ORDERED: NAPR-1164 PO (12:08)
--- NOTE | 2020-08-19 12:17 | NUR ---
CALLED TRANSPORT [facility] ETA 15MINS.
--- NOTE | 2020-08-19 12:56 | NUR ---
REPORT GIVEN TO GET BARBOSA AT [facility] FOR [facility]. PT ENROUTE VIA S FOR TRINITY.
[2020-08-19 12:57] VITALS: BP 135/84
== END 2020-08-19 12:59 ==
LOC: ER 11:21
DX: M54.2 Cervicalgia (principal); G35 Multiple sclerosis; K21.9 Gastro-esophageal reflux disease without esophagitis; Z98.890 Other specified postprocedural states; Z79.899 Other long term (current) drug therapy
CPT/HCPCS: 72050; 96372; 99283; J1885

== ENCOUNTER 2020-09-25 13:35 | Inpatient (IN) | payer MEDICARE, OTHER ==
[~2020-09-25] VITALS: Ht 152.4 cm; Wt 41.3 kg
[~2020-09-25 13:35] MED LIST changes: +ACET-2605 PO; +ACET-868 PO; -ACET325T53 PO; -AMIN30LI2 PO; -ASCO500T20 PO; -ASPI-605 PO; +CALC500T13 PO; -CHOL100044 PO; -Calcium Carb 600MG /Vit D PO; -HYDR-4354 PO; +MIRT7.5T10 PO; -MULT-1185 PO; +NAPR-1164 PO; +OMEG-167 PO; -OMEP40CA13 PO; +ONDA-97 PO; +TYL2T PO
[2020-09-25] MEDS ORDERED: TRAM50TA2 PO (13:57)
[2020-09-25] MEDS ORDERED: AMIN30LI2 PO (13:57)
[2020-09-25] MEDS ORDERED: MULT-447 PO (13:57)
--- NOTE | 2020-09-25 14:00 | NUR ---
KATIE Kumar [address] from [facility] Hx recent fall-sent here for intractable pain. On room air, breathing evenly and unlabored. COnnected to the monitor and pulse ox. kept comfortable, will continue to monitor accordingly.
[2020-09-25] MEDS ORDERED: IV NS 0.9% 500 ML BAG IV ONE ×2 (14:30→16:00)
[2020-09-25 14:58] LABS: BASOPHILS % (AUTO) 0.4 % (0.0-2.0); EOSINOPHILS % (AUTO) 0.3 % (0.0-6.0); HEMATOCRIT 34 % (33-45); HEMOGLOBIN 11.6 g/dL (11.5-14.8); LYMPHOCYTES # (AUTO) 0.9 /CMM (0.8-4.8); LYMPHOCYTES % (AUTO) 12.6 % (20.0-44.0); MEAN CORPUSCULAR HGB CONC 34 g/dl (31.0-36.0); MEAN CORPUSCULAR VOLUME 92 fL (82-100); MONOCYTES # (AUTO) 0.3 /CMM (0.1-1.30); MONOCYTES % (AUTO) 3.9 % (2.0-12.0); NEUTROPHILS % (AUTO) 82.8 % (43.0-81.0); PLATELET COUNT (AUTO) 268 /CMM (150-450); WHITE BLOOD COUNT (AUTO) 7.2 K/uL (4.3-11.0)
[2020-09-25 15:19] LABS: CALCIUM, SERUM 9.3 mg/dL (8.5-10.1); CARBON DIOXIDE 25 mmol/L (21-32); CHLORIDE 106 mmol/L (98-107); CREATININE 0.4 mg/dL (0.6-1.3); GLUCOSE 92 mg/dL (74-106); POTASSIUM 4.7 mmol/L (3.5-5.1); SODIUM SERUM 139 mmol/L (136-145); UREA NITROGEN, BLOOD 25 mg/dL (7-18)
[2020-09-25 15:25] LABS: ALANINE AMINOTRANSFERASE 22 U/L (12-78); ALBUMIN 2.7 g/dL (3.4-5.0); ALKALINE PHOSPHATASE 128 U/L (46-116); ASPARTATE AMINOTRANSFERASE 18 U/L (15-37); BILIRUBIN,DIRECT 0.1 mg/dL (0.0-0.2); BILIRUBIN,TOTAL 0.3 mg/dL (0.2-1.0); LIPASE 374 U/L (73-393); TOTAL PROTEIN, SERUM 6.5 g/dL (6.4-8.2)
--- NOTE | 2020-09-25 15:47 | NUR ---
urine collected and sent to lab
[2020-09-25 16:27] LABS: BILIRUBIN,URINE NEGATIVE (NEGATIVE); COLOR,URINE AMBER (YELLOW); LEUKOCYTE ESTERASE ,URINE LARGE (NEGATIVE); NITRITE, URINE NEGATIVE (NEGATIVE); PROTEIN,URINE >=300 mg/dl (NEGATIVE); UGLUCOSE NEGATIVE (NEGATIVE); UROBILINOGEN,URINE 0.2 EU/dL (0.2)
[2020-09-25 16:30] LABS: PH,URINE 8.5 (5.0-8.0)
[2020-09-25 16:50] LABS: BACTERIA,URINE Many /HPF (None Seen); RBC,URINE 21-50 /HPF (0-2); SQUAMOUS EPITHELIAL CELL,UR Moderate /HPF (None Seen); URINE AMORPHOUS PHOSPHATES Many /HPF (None Seen); WBC,URINE 51-80 /HPF (0-3)
--- NOTE | 2020-09-25 16:52 | NUR ---
COVID SWABS DONE AND SENT TO THE LAB
[2020-09-25] MEDS ORDERED: MEROPENEM 1,000 MG in IV NS 0.9% 100 ML IV ONE (17:00)
--- NOTE | 2020-09-25 17:12 | NUR ---
GOT BED 105
[2020-09-25] MEDS ORDERED: MAG HYDROX/AL HYDROX/SIMETH 30 ML UDC PO PRN (17:30)
[2020-09-25] MEDS ORDERED: Z GUARD REMEDY 2 OZ OINT TP PRN (17:30)
[2020-09-25] MEDS ORDERED: MAGNESIUM HYDROXIDE 30 ML UDC PO PRN (17:30)
[2020-09-25] MEDS ORDERED: ONDANSETRON HCL/PF 4 MG/2 ML VIAL IVP PRN (17:30)
--- NOTE | 2020-09-25 17:54 | NUR ---
wheeled patient via gurney accompanied by EMT in no distress. RN assigned at bedside to assume care.
--- NOTE | 2020-09-25 19:00 | NUR ---
RN OPENING NOTE RECEIVED PATIENT IN BED RESTING ALERT ORIENTED X1 CONFUSED, VERBALLY RESPONSIVE,MOUTH WORDS,MED SURG MONITORING ON ROOM AIR 02;98% IV SITE IS ON RIGHT AC INTACT PATENT NS 0.9% RUNNING 75CC/HR INCONTINENT TO BOWEL/BLADDER,CRYING FOR PAIN UNABLE TO ACCESS PAIN LEVEL,DUE TO HER MENTAL STATUS,SAFETY MEASURE IMPLEMENT,BED IN LOW POSITION AND LOCKED BED ALARM IS ON CONTINUE TO MONITOR.
--- NOTE | 2020-09-25 19:29 | NUR ---
PT RECEIVED IN [place] FROM EMT AT 1754, NOTED IV IN R AC INTACT AND PATENT , PT AOX2 WITH UNINTELLIGIBLE SPEECH, RUNNING NS @ 75ML/HR
[2020-09-25] MEDS: CEFTRIAXONE 1 G in IV D5W 50 ML IV SCH (20:08)
[2020-09-25] MEDS: IV NS 0.9% 1,000 ML IV PRN (20:36)
[2020-09-25] MEDS: HYDROCODONE/APAP 5/325MG TABLET PO PRN (20:39)
[2020-09-25 22:00] VITALS: BP 129/73
--- NOTE | 2020-09-26 03:23 | NUR ---
RN NOTE REPORT GIVEN TO ADDIS SOTELO FOR CONTINUATION OF CARE.
--- NOTE | 2020-09-26 03:23 | NUR ---
RN NOTE: Rec'd report from ASHLEIGH Byrnes for TRINITY.
[2020-09-26 04:00] VITALS: BP 131/65
--- NOTE | 2020-09-26 04:30 | NUR ---
RN NOTE: Pt's temp noted to be 94.4. Pt placed on bear hugger. Will continue to monitor.
[2020-09-26] MEDS: HYDROCODONE/APAP 5/325MG TABLET PO PRN ×3 (05:28→23:07)
[2020-09-26 06:54] LABS: BASOPHILS % (AUTO) 0.4 % (0.0-2.0); EOSINOPHILS % (AUTO) 0.5 % (0.0-6.0); HEMATOCRIT 34 % (33-45); HEMOGLOBIN 11.4 g/dL (11.5-14.8); LYMPHOCYTES # (AUTO) 0.4 /CMM (0.8-4.8); LYMPHOCYTES % (AUTO) 7.1 % (20.0-44.0); MEAN CORPUSCULAR HGB CONC 34 g/dl (31.0-36.0); MEAN CORPUSCULAR VOLUME 92 fL (82-100); MONOCYTES # (AUTO) 0.4 /CMM (0.1-1.30); MONOCYTES % (AUTO) 5.9 % (2.0-12.0); NEUTROPHILS # (AUTO) 5.4 /CMM (1.8-8.9); NEUTROPHILS % (AUTO) 86.1 % (43.0-81.0); PLATELET COUNT (AUTO) 241 /CMM (150-450); RED BLOOD CELL COUNT(AUTO) 3.69 MIL/uL (4.0-5.2); WHITE BLOOD COUNT (AUTO) 6.2 K/uL (4.3-11.0)
[2020-09-26 07:27] LABS: CHOLESTEROL 179 mg/dL (<200); HDL CHOLESTEROL 72 mg/dL (40-60); LDL 85 mg/dL (0-99); TRIGLYCERIDES 79 mg/dL (30-150)
[2020-09-26 07:28] LABS: ALANINE AMINOTRANSFERASE 109 U/L (12-78); ALBUMIN 2.4 g/dL (3.4-5.0); ALKALINE PHOSPHATASE 251 U/L (46-116); ASPARTATE AMINOTRANSFERASE 138 U/L (15-37); BILIRUBIN,TOTAL 0.4 mg/dL (0.2-1.0); CALCIUM, SERUM 8.4 mg/dL (8.5-10.1); CARBON DIOXIDE 21 mmol/L (21-32); CHLORIDE 109 mmol/L (98-107); CREATININE 0.4 mg/dL (0.6-1.3); GLUCOSE 84 mg/dL (74-106); MAGNESIUM 1.8 mg/dL (1.8-2.4); PHOSPHORUS 3.2 mg/dL (2.5-4.9); POTASSIUM 4.2 mmol/L (3.5-5.1); SODIUM SERUM 139 mmol/L (136-145); UREA NITROGEN, BLOOD 17 mg/dL (7-18)
--- NOTE | 2020-09-26 07:30 | NUR ---
RN OPENING NOTES Patient received in bed and was sleeping upon arrival. No c/o pain or discomfort. Patient noted with right ac 18 gauze with normal saline running at 75cc/hour. Patient will be monitored. Call light with in reach.
[2020-09-26] MEDS: ASCORBIC ACID 500 MG TABLET PO SCH (08:10)
[2020-09-26] MEDS: DOCUSATE SODIUM 100 MG CAPSULE PO SCH ×2 (08:10→17:00)
[2020-09-26] MEDS: MULTIVIT W/MINERALS 1 TAB TABLET PO SCH (08:10)
[2020-09-26] MEDS: CHOLECALCIFEROL 1,000 UNIT TABLET (VIT D3) PO SCH (08:10)
[2020-09-26] MEDS: CALCIUM CARBONATE 500 MG TAB.CHEW PO SCH (08:10)
[2020-09-26] MEDS ORDERED: IOHEXOL-300 100 ML VIAL IV ONE (13:20)
[2020-09-26] MEDS ORDERED: IV NS 0.9% 250 ML IV ONE (13:20)
[2020-09-26] MEDS ORDERED: CT SWABBABLE VALVE TRANS SET 1 EA INFUS.SET MC ONE (13:20)
[2020-09-26] MEDS: IV NS 0.9% 1,000 ML IV PRN (14:27)
[2020-09-26 16:00] VITALS: BP 110/60
--- NOTE | 2020-09-26 18:59 | NUR ---
RN CLOSING NOTES Patient in bed currently and sleeping. Patient was given prn norco for pain in right side of the neck. Patient noted with right ac 18 gauze with normal saline running at 75cc/hour. Patient will be monitored. Call light with in reach.Will endorse to next shift for demarcus.
--- NOTE | 2020-09-26 19:30 | NUR ---
MS1 RN NOTES RECEIVED LYING COMFORTABLY ON BED,A/O X1,NO SOB,PRESENT IVF NS AT 75ML/HR RATE INFUSING WELL ON RAC VIA IV PUMP,SITE PATENT,NO S/S OF INFILTRATION NOTED.FALL RISK,BED ON LOWEST POSITION AND LOCKED,BED ALARM TRIGGERED,CALL LIGHT IN REACH,NEEDS ANTICIPATED.
--- NOTE | 2020-09-26 19:33 | NUR ---
MS1 RN NOTES DNR STATUS WITH POLST.
[2020-09-26 20:00] VITALS: BP 125/68
[2020-09-26] MEDS: CEFTRIAXONE 1 G in IV D5W 50 ML IV SCH (20:35)
[2020-09-26 22:00] VITALS: BP 125/68
--- NOTE | 2020-09-26 23:07 | NUR ---
MS1 RN NOTES PAIN MANAGEMENT C/O RIGHT NECK PAIN 5/10 ON PAIN SCALE,NORCO 5/325MG,1 TAB PO GIVEN ORDER FOR MODERATE PAIN.
[2020-09-27] MEDS: IV NS 0.9% 1,000 ML IV PRN ×2 (03:10→20:00)
[2020-09-27 04:30] VITALS: BP 128/66
--- NOTE | 2020-09-27 06:09 | NUR ---
MS1 RN NOTES AWAKE,WATCHING TV PROGRAM,PAIN MANAGEMENT EFFECTIVE,IVF IN PROGRESS,SITE REMAINS PATENT. DUE MEDS ADMINISTERED,ABLE TO SWALLOW WHOLE PILL.REPOSITION PER PROTOCOL.CALL LIGHT IN REACH,NEEDS ATTENDED.
--- NOTE | 2020-09-27 07:30 | NUR ---
MS SOTELO AM NOTES RECEIVED LYING COMFORTABLY, IN BED,A/O X1,NAURUAN SPEAKING, ON ROOM AIR, NO DISTRESS, NO SOB, RESPIRATION UNLABORED, WITH IVF NS AT 75ML/HR RATE INFUSING WELL ON RAC VIA IV PUMP,SITE CLEAR. FALL RISK,BED ON LOWEST POSITION AND LOCKED,BED ALARM TRIGGERED,CALL LIGHT IN REACH,NEEDS ANTICIPATED, WILL CONTINUE TO MONITOR..
[2020-09-27 08:00] VITALS: BP 149/77
[2020-09-27 08:14] LABS: ALANINE AMINOTRANSFERASE 89 U/L (12-78); ALBUMIN 2.3 g/dL (3.4-5.0); ALKALINE PHOSPHATASE 244 U/L (46-116); ASPARTATE AMINOTRANSFERASE 75 U/L (15-37); BILIRUBIN,TOTAL 0.2 mg/dL (0.2-1.0); CALCIUM, SERUM 8.4 mg/dL (8.5-10.1); CARBON DIOXIDE 22 mmol/L (21-32); CHLORIDE 110 mmol/L (98-107); CREATININE 0.5 mg/dL (0.6-1.3); GLUCOSE 69 mg/dL (74-106); POTASSIUM 3.8 mmol/L (3.5-5.1); SODIUM SERUM 140 mmol/L (136-145); TOTAL PROTEIN, SERUM 5.6 g/dL (6.4-8.2); UREA NITROGEN, BLOOD 13 mg/dL (7-18)
[2020-09-27] MEDS: CHOLECALCIFEROL 1,000 UNIT TABLET (VIT D3) PO SCH (08:55)
[2020-09-27] MEDS: DOCUSATE SODIUM 100 MG CAPSULE PO SCH ×2 (08:55→16:22)
[2020-09-27] MEDS: CALCIUM CARBONATE 500 MG TAB.CHEW PO SCH (08:55)
[2020-09-27] MEDS: MULTIVIT W/MINERALS 1 TAB TABLET PO SCH (08:55)
[2020-09-27] MEDS: ASCORBIC ACID 500 MG TABLET PO SCH (08:55)
--- NOTE | 2020-09-27 09:30 | NUR ---
RN NOTES DUE MEDS GIVEN DR. PALMA FOR PAIN MANAGEMENT AT BEDSIDE
[2020-09-27 10:00] VITALS: BP 130/72
[2020-09-27] MEDS: LIDOCAINE 5% (PATCH) 1 EA PATCH TP SCH (10:40)
--- NOTE | 2020-09-27 14:45 | NUR ---
RN NOTES SPOKE WITH STEPHANIE [PT'S SON] REGARDING MEDICAL RECORDS, PER SON, PATIENT HAS NO RECORDS AT [facility] AND WAS NOT SEEN THERE SINCE 2019. ACCORDING TO THE SON, SHE HAS 3 DOCTORS AND THAT HE WILL CALL THEM AND HAVE THE RECORDS FAXED TO [facility]. FAX NO: [phone].
[2020-09-27 16:00] VITALS: BP 127/77
--- NOTE | 2020-09-27 18:30 | NUR ---
MS RN CLOSING NOTES AWAKE,WATCHING TV PROGRAM,PAIN MANAGEMENT EFFECTIVE,IVF IN PROGRESS,SITE REMAINS PATENT. SWALLOW EVAL DONE THIS MORNING, PLACED ON PUREED DIET, CRUSH MEDS. ASPIRATION PRECAUTION. REPOSITION PER PROTOCOL.CALL LIGHT IN REACH,NEEDS ATTENDED. WILL ENDORSE TO NEXT SHIFT FOR [facility]INITY.
--- NOTE | 2020-09-27 19:30 | NUR ---
RN OPENING NOTES: RECEIVED PT A/OX1-2 IN BED RESTING COMFORTABLY. PATIENT IN NO S/SX OF ACUTE DISTRESS AT THIS TIME. NO SOB NOTED. PATIENT'S BREATHING IS EVEN AND UNLABORED. PATIENT IS ON ROOM AIR TOLERATING WELL; O2 SAT @ >95% AT THE TIME OF RECEIVED. PATIENT ON MS STATUS. ON BED REST BUT NOTED TO HAVE BED MOBILITY. PATIENT ON PUREED DIET; TOLERATES WELL. NOTED IV SITE ON R AC#18; PATENT, INTACT AND FLUSHING WELL; NO S/S OF INFECTION OR INFILTRATION. WITH IV FLUID RUNNING ORDERED. SAFETY MEASURES HAVE BEEN PROVIDED AND IMPLEMENTED. PATIENT BED ALARM IS ON. HEAD OF BED ELEVATED. BED IS LOCKED, IN LOWEST POSITION AND SIDE RAILS UP. CALL LIGHT WITHIN REACH OF THE PATIENT. APPLICABLE ISOLATION PRECAUTIONS IN PLACE. WILL CONTINUE TO MONITOR AND REASSESS FOR ANY CHANGES AND WILL CARRY OUT ANY ONGOING AND ACTIVE MD ORDER.
[2020-09-27 20:00] VITALS: BP 121/67
[2020-09-27] MEDS: CEFTRIAXONE 1 G in IV D5W 50 ML IV SCH (20:41)
--- NOTE | 2020-09-27 22:30 | NUR ---
RN NOTES NO CHANGE IN PATIENT CONDITION AT THIS TIME PATIENT VITALS STABLE, NO SIGNS OF ACUTE RESPIRATORY DISTRESS. WILL CONTINUE TO MONITOR AND REASSESS FOR ANY CHANGES THROUGHOUT THE SHIFT.
--- NOTE | 2020-09-28 03:30 | NUR ---
RN NOTES PATIENT REMAINS IN NO ACUTE RESPIRATORY DISTRESS AT THIS TIME, NO CHANGES TO CONDITION/STATUS. AM PATIENT CARE DONE. WILL CONTINUE TO MONITOR AND REASSESS FOR ANY CHANGES THROUGHOUT THE SHIFT
[2020-09-28 04:00] VITALS: BP 137/73
--- NOTE | 2020-09-28 06:52 | NUR ---
RN CLOSING NOTE: PATIENT REMAINS IN ROOM IN NO SIGNS OF RESPIRATORY DISTRESS, PATIENT STILL ON ROOM AIR;TOLERATING WELL SATURATING @ >95% SP02. SAFETY MEASURES IMPLEMENTED, BED IN LOWEST POSITION, LOCKED, SIDE RAILS UP, CALL LIGHT WITHIN REACH. ALL NEEDS AND ORDERS ADDRESSED DURING THE SHIFT. IV ACCESS MAINTAINED INTACT, SECURED AND FLUSHING WELL. ALL DUE MEDS GIVEN ORDERED & SCHEDULED ; PATIENT TOLERATED WELL. PATIENT KEPT CLEAN AND COMFORTABLE WITHIN THE SHIFT. PATIENT ENDORSED TO INCOMING SHIFT RN WITH STABLE VITAL SIGN AND FOR CONTINUITY OF CARE.
--- NOTE | 2020-09-28 07:30 | NUR ---
RN OPENING NOTE PT A/Ox2 LYING IN BED SEMIFOWLERS BREATHING RA SPO2 97%, NO SIGNS OR RESP DISTRESS OR SOB. PT STATES PAIN 4/10 ON RT/POSTERIOR NECK, LIDOCAINE PATCH SCHEDULED FOR 0900. PT HAS RAC #18 RUNNING NS @ 75 ML/HR, FLUSHED, PATENT NO S/S OF INFECTION OR INFILTRATION. PT INCONTINENT, HAS DIAPER IN PLACE. ALL P TSAFETY PRECAUTION IN PLACE, SR UP x2, BED LOCKED AND IN LOWEST POSITION, CALL LIGHT WITHIN REACH, BED ALARM ON. WILL CONT TO MONITOR
[2020-09-28 08:00] VITALS: BP 129/70
[2020-09-28] MEDS: CHOLECALCIFEROL 1,000 UNIT TABLET (VIT D3) PO SCH (08:58)
[2020-09-28] MEDS: DOCUSATE SODIUM 100 MG CAPSULE PO SCH ×2 (08:58→17:14)
[2020-09-28] MEDS: ASCORBIC ACID 500 MG TABLET PO SCH (08:58)
[2020-09-28] MEDS: LIDOCAINE 5% (PATCH) 1 EA PATCH TP SCH (08:58)
[2020-09-28] MEDS: CALCIUM CARBONATE 500 MG TAB.CHEW PO SCH (08:58)
[2020-09-28] MEDS: MULTIVIT W/MINERALS 1 TAB TABLET PO SCH (08:59)
--- NOTE | 2020-09-28 09:00 | NUR ---
RN NOTE' DR FULLER INFORMED OF PT URINE CX POSITIVE FOR E. COLI ESBL AND RESISTANCE TO PT'S SCHEDULED ROCEPHIN ABX
[2020-09-28 12:00] VITALS: BP 111/64
[2020-09-28] MEDS: IV NS 0.9% 1,000 ML IV PRN (12:55)
[2020-09-28] MEDS ORDERED: MEROPENEM 1 G in IV NS 0.9% 100 ML IV ONE (13:00)
[2020-09-28 16:00] VITALS: BP 125/64
[2020-09-28] MEDS: ACETAMINOPHEN 325 MG TABLET PO PRN (18:05)
--- NOTE | 2020-09-28 19:15 | NUR ---
RN CLOSING NOTE NO CHANGES TO PT DURING SHIFT, PT IS STABLE, BREATHING ON RA WITH NO SIGNS OF REP DISTRESS OR SOB SPO2 97%. PT GIVEN TYLENOL FOR NECK PAIN AT 1800. PT CT CHEST W/O CONTRAST TOMORROW. ALL PT SAFETY PRECAUTIONS IN PLACE, WILL ENDORSE TRINITY TO ONCOMING RN
[2020-09-28 20:00] VITALS: BP 93/50
--- NOTE | 2020-09-28 20:00 | NUR ---
RN MS OPENING NOTES: RECEIVED PT A/OX1-2 IN RESTING COMFORTABLY. NO S/SX OF ACUTE DISTRESS NO SOB NOTED. BREATHING IS EVEN AND UNLABORED. ON ROOM AIR TOLERATING WELL; SATING 96% TOLERATES WELL. NOTED IV SITE ON R AC#18; PATENT, INTACT AND FLUSHING WELL; NO S/S OF INFECTION OR INFILTRATION. WITH IV FLUID RUNNING ORDERED.NS AT 75CC/HR SAFETY MEASURES HAVE BEEN PROVIDED AND IMPLEMENTED. PATIENT BED ALARM IS ON. HEAD OF BED ELEVATED. BED IS LOCKED, IN LOWEST POSITION AND SIDE RAILS UP. CALL LIGHT WITHIN REACH OF THE PATIENT. APPLICABLE ISOLATION PRECAUTIONS IN PLACE. WILL CONTINUE TO MONITOR AND REASSESS FOR ANY CHANGES .
[2020-09-28] MEDS: MEROPENEM 1 G in IV NS 0.9% 100 ML IV SCH (20:10)
[2020-09-29] MEDS: IV NS 0.9% 1,000 ML IV PRN ×2 (03:26→17:48)
[2020-09-29 04:00] VITALS: BP 113/61
[2020-09-29] MEDS: MEROPENEM 1 G in IV NS 0.9% 100 ML IV SCH ×3 (04:17→20:07)
[2020-09-29] MEDS: HYDROCODONE/APAP 5/325MG TABLET PO PRN ×2 (04:35→12:19)
--- NOTE | 2020-09-29 07:30 | NUR ---
RN OPENING NOTE PT A/Ox2 LYING IN BED SEMIFOWLERS BREATHING RA SPO2 96%, NO SIGNS OR RESP DISTRESS OR SOB. PT STATES PAIN 5/10 ON RT/POSTERIOR NECK, LIDOCAINE PATCH SCHEDULED FOR 0900, WILL GIVE TYLENOL WELL. PT HAS RAC #18 RUNNING NS @ 75 ML/HR, FLUSHED, PATENT NO S/S OF INFECTION OR INFILTRATION. PT SCHCEDULED FOR CT SCAN OF [facility] W/O CONTRAST TODAY. PT INCONTINENT, HAS DIAPER IN PLACE. ALL PT SAFETY PRECAUTION IN PLACE, SR UP x2, BED LOCKED AND IN LOWEST POSITION, CALL LIGHT WITHIN REACH, BED ALARM ON. WILL CONT TO MONITOR
[2020-09-29 08:00] VITALS: BP 110/60
[2020-09-29 08:06] LABS: IMMUNOGLOBULIN A, SERUM 232 mg/dL (64-422); IMMUNOGLOBULIN G, SERUM 878 mg/dL (586-1602); IMMUNOGLOBULIN M, SERUM 30 mg/dL (26-217)
[2020-09-29 08:36] LABS: IRON, SERUM 40 ug/dl (50-175); TOTAL IRON BINDING CAPACITY 182 ug/dl (250-450)
[2020-09-29] MEDS: CHOLECALCIFEROL 1,000 UNIT TABLET (VIT D3) PO SCH (08:38)
[2020-09-29] MEDS: LIDOCAINE 5% (PATCH) 1 EA PATCH TP SCH (08:38)
[2020-09-29] MEDS: DOCUSATE SODIUM 100 MG CAPSULE PO SCH ×2 (08:38→17:48)
[2020-09-29] MEDS: MULTIVIT W/MINERALS 1 TAB TABLET PO SCH (08:39)
[2020-09-29] MEDS: ACETAMINOPHEN 325 MG TABLET PO PRN (08:39)
[2020-09-29] MEDS: ASCORBIC ACID 500 MG TABLET PO SCH (08:39)
[2020-09-29] MEDS: CALCIUM CARBONATE 500 MG TAB.CHEW PO SCH (08:39)
[2020-09-29 08:52] LABS: FERRITIN 59 ng/mL (8-388)
--- NOTE | 2020-09-29 11:30 | NUR ---
RN NOTE PT BACK FROM CT CHEST W/O CONTRAST IN STABLE CONDITION, ALL PT SAFETY MEASURES IN PLACE.
[2020-09-29 16:00] VITALS: BP 107/73
--- NOTE | 2020-09-29 18:10 | NUR ---
RN NOTE CALLED PT'S SON/PERSON TO NOTIFY REGARDING CT CHEST W CONTRAST CONSENT AND MRCP CHECKLIST SHEET; LEFT MESSAGE. WILL ENDORSE TO ONCOMING NURSE
--- NOTE | 2020-09-29 19:00 | NUR ---
RN CLOSING NOTE NO CHANGES TO PT STATUS DURING SHIFT. PT IN STABLE CONDITION WITH NO S/S OF RESP DISTRESS OR SOB. PT DENIES PAIN AT THIS TIME. ALL PT SAFETY PRECAUTIONS IN PLACE. WILL ENDORSE TRINITY TO ONCOMING NURSE
[2020-09-29 20:00] VITALS: BP 111/51
[2020-09-30 04:00] VITALS: BP 124/65
[2020-09-30] MEDS: MEROPENEM 1 G in IV NS 0.9% 100 ML IV SCH ×2 (05:26→17:07)
--- NOTE | 2020-09-30 07:10 | NUR ---
RN OPENING NOTES RECEIVED PT RESTING IN BED, AWAKE. A/O X2. STABLE ON RA, NO SOB OR ANY SIGNS OF RESPIRATORY DISTRESS. IV ACCESS AT R AC #18 INTACT AND PATENT. RUNNING NS @75 ML/HR, INFUSING WELL. [facility] SOFT DIET. SAFETY PRECAUTION IMPLEMENTED. CALL LIGHT WITHIN REACH. BED LOCKED AND IN LOWEST POSITION WITH SIDE RAILS UP X3. BED ALARM ON. WILL CONTINUE TO MONITOR.
[2020-09-30 07:49] LABS: THYROID STIMULATING HORMONE 4.334 uIU/mL (0.358-3.74)
[2020-09-30] MEDS: CALCIUM CARBONATE 500 MG TAB.CHEW PO SCH (08:54)
[2020-09-30] MEDS: CHOLECALCIFEROL 1,000 UNIT TABLET (VIT D3) PO SCH (08:54)
[2020-09-30] MEDS: DOCUSATE SODIUM 100 MG CAPSULE PO SCH ×2 (08:54→17:07)
[2020-09-30] MEDS: FERROUS SULFATE (325 MG) 325 MG/TAB TABLET PO SCH ×2 (08:54→17:07)
[2020-09-30] MEDS: LIDOCAINE 5% (PATCH) 1 EA PATCH TP SCH (08:54)
[2020-09-30] MEDS: ASCORBIC ACID 500 MG TABLET PO SCH (08:54)
[2020-09-30] MEDS: MULTIVIT W/MINERALS 1 TAB TABLET PO SCH (08:54)
[2020-09-30] MEDS: IV NS 0.9% 1,000 ML IV PRN (09:05)
[2020-09-30 12:00] VITALS: BP 126/59
[2020-09-30] MEDS ORDERED: MEROPENEM 500 MG in IV NS 0.9% 100 ML IV SCH (13:00)
--- NOTE | 2020-09-30 14:04 | NUR ---
CONSENT PENDING FOR CT CHEST WITH CONTRAST EXAM.
[2020-09-30] MEDS: HYDROCODONE/APAP 5/325MG TABLET PO PRN (15:45)
[2020-09-30] MEDS: ENSURE ENLIVE 237 ML LIQUID (VANILLA) PO SCH (17:46)
--- NOTE | 2020-09-30 18:45 | NUR ---
RN CLOSING NOTE NO SIGNIFICANT CHANGES DURING SHIFT. IN STABLE CONDITION. STABLE ON ROOM AIR. NO PAIN REPORTED AT THIS TIME. SAFETY MEASURES STILL IN PLACE. WILL ENDORSE TO NIGHT NURSE FOR TRINITY.
[2020-09-30 20:00] VITALS: BP 106/60
[2020-10-01] MEDS: IV NS 0.9% 1,000 ML IV PRN ×2 (03:20→16:52)
[2020-10-01 04:00] VITALS: BP 114/64
[2020-10-01] MEDS: MEROPENEM 1 G in IV NS 0.9% 100 ML IV SCH ×2 (05:15→16:32)
[2020-10-01 07:06] LABS: *SPE ALBUMIN 2.7 g/dL (2.9-4.4); *SPE ALPHA-1-GLOBULIN 0.3 g/dL (0.0-0.4); *SPE ALPHA-2-GLOBULIN 0.7 g/dL (0.4-1.0); *SPE BETA GLOBULIN 0.9 g/dL (0.7-1.3); *SPE GLOBULIN, TOTAL 2.6 g/dL (2.2-3.9); *SPE M-SPIKE Not Observed g/dL (Not Observed); *SPEGAMMA GLOBULIN 0.7 g/dL (0.4-1.8)
--- NOTE | 2020-10-01 07:30 | NUR ---
RN OPENING NOTES PATIENT PRESENT IN BED, AWAKE, A//OX2, COMPLAINS ON NECK PAIN, ON ROOM AIR, SPO2 99%, NO SOB NOTED, IV LINE NOTED, FLUSHED AND PATENT, HOB ELEVATED, SAFETY PRECAUTIONS IN PLACE, WILL CONT TO MONITOR
[2020-10-01] MEDS: LIDOCAINE 5% (PATCH) 1 EA PATCH TP SCH (08:37)
[2020-10-01] MEDS: CHOLECALCIFEROL 1,000 UNIT TABLET (VIT D3) PO SCH (08:50)
[2020-10-01] MEDS: ASCORBIC ACID 500 MG TABLET PO SCH (08:50)
[2020-10-01] MEDS: CALCIUM CARBONATE 500 MG TAB.CHEW PO SCH (08:50)
[2020-10-01] MEDS: ACETAMINOPHEN 325 MG TABLET PO PRN (08:50)
[2020-10-01] MEDS: DOCUSATE SODIUM 100 MG CAPSULE PO SCH ×2 (08:50→16:32)
[2020-10-01] MEDS: MULTIVIT W/MINERALS 1 TAB TABLET PO SCH (08:50)
[2020-10-01] MEDS: FERROUS SULFATE (325 MG) 325 MG/TAB TABLET PO SCH ×2 (08:50→16:32)
[2020-10-01] MEDS: ENSURE ENLIVE 237 ML LIQUID (VANILLA) PO SCH ×3 (08:50→16:32)
--- NOTE | 2020-10-01 09:15 | NUR ---
PATIENT TAKEN TO ct SCAN W/CONTRAST VIA BED, CONSENT FORM SIGNED AND CHECKED
[2020-10-01] MEDS ORDERED: IOHEXOL-300 100 ML VIAL IV ONE (09:20)
[2020-10-01] MEDS ORDERED: IV NS 0.9% 250 ML IV ONE (09:20)
[2020-10-01] MEDS ORDERED: CT SWABBABLE VALVE TRANS SET 1 EA INFUS.SET MC ONE (09:20)
--- NOTE | 2020-10-01 09:42 | NUR ---
BACK FROM CT SCAN, TOLERATED WELL, CONNECTED TO FLUIDS, POSITIONED COMFORTABLY, SAFETY MEASURES IN PLACE, WILL CONT TO MONITOR
[2020-10-01 12:00] VITALS: BP 128/73
[2020-10-01 18:24] LABS: ALBUMIN 2.3 g/dL (3.4-5.0); BILIRUBIN,DIRECT 0.1 mg/dL (0.0-0.2); BILIRUBIN,TOTAL 0.4 mg/dL (0.2-1.0); TOTAL PROTEIN, SERUM 5.7 g/dL (6.4-8.2)
--- NOTE | 2020-10-01 19:03 | NUR ---
RN CLOSING NOTE RESTING COMFORTABLY, MEDICATIONS GIVEN, CLEANED AND REPOSITIONED, WILL ENDORSE TO PM SHIFT RN FOR TRINITY
--- NOTE | 2020-10-01 19:40 | NUR ---
RN OPENING NOTES RECD PT IN BED. A/O X2 URDU SPEAKING LITTLE CENTRAL AFRICAN, WATER RIGHTS SPECIALIST UTILIZED. PT IS ON ROOM AIR TOLERATING WELL. NO SOB OR RESP DISTRESS. PT ON MED SURG MONITORING. IV SITE FLUSHED. NO S.S OF INFILTRATION. ALL NEEDS ATTENDED DENIES PAIN. SAFETY MEASURES IN PLACE. HOB ELEVATED. SIDE RAILS UP X2, BED LOCKED IN LOWEST POSITION CALL LIGHT WITHIN REACH WILL CONT TO MONITOR
[2020-10-01 20:00] VITALS: BP 132/69
[2020-10-02 04:00] VITALS: BP 123/67
[2020-10-02] MEDS: MEROPENEM 1 G in IV NS 0.9% 100 ML IV SCH (05:09)
[2020-10-02 06:11] LABS: BASOPHILS % (AUTO) 0.7 % (0.0-2.0); EOSINOPHILS % (AUTO) 2.7 % (0.0-6.0); HEMATOCRIT 32 % (33-45); HEMOGLOBIN 11.1 g/dL (11.5-14.8); LYMPHOCYTES # (AUTO) 1.6 /CMM (0.8-4.8); LYMPHOCYTES % (AUTO) 26.7 % (20.0-44.0); MEAN CORPUSCULAR HGB CONC 35 g/dl (31.0-36.0); MEAN CORPUSCULAR VOLUME 91 fL (82-100); MONOCYTES # (AUTO) 0.5 /CMM (0.1-1.30); MONOCYTES % (AUTO) 7.7 % (2.0-12.0); NEUTROPHILS # (AUTO) 3.7 /CMM (1.8-8.9); NEUTROPHILS % (AUTO) 62.2 % (43.0-81.0); PLATELET COUNT (AUTO) 267 /CMM (150-450); RED BLOOD CELL COUNT(AUTO) 3.49 MIL/uL (4.0-5.2)
--- NOTE | 2020-10-02 07:04 | NUR ---
RN CLOSING NOTE NO SIGNIFICANT CHANGES IN PT CONDITION. STILL REMAINS ON ROOM AIR. NO DISTRESS NOTED. SAFETY MEASURES IN PLACE. IVF RUNNING ORDERED. NO S.S OF INFILTRATION. HOB ELEVATED. SIDE RAILS UP X2, BED LOCKED IN LOWEST POSITION. CALL LIGHT WITHIN REACH. WILL ENDORSE TO AM NURSE FOR CONT OF CARE.
--- NOTE | 2020-10-02 07:20 | NUR ---
RN OPENING NOTES PT RECEIVED IN BED RESTING IN LEFT LATERAL POSITION. PATIENT A/O X2 GEORGIAN SPEAKING LITTLE UGANDAN. PT IS ON ROOM AIR TOLERATING WELL. NO SOB OR RESP DISTRESS. IV SITE FLUSHED. NO S/S OF INFILTRATION. SAFETY MEASURES IMPLEMENTED, SIDE RAILS UP X2, BED LOCKED IN LOWEST POSITION, CALL LIGHT WITHIN REACH. WILL CONTINUE TO MONITOR AND PROVIDE CARE THROUGHOUT SHIFT.
[2020-10-02] MEDS: CALCIUM CARBONATE 500 MG TAB.CHEW PO SCH (09:50)
[2020-10-02] MEDS: DOCUSATE SODIUM 100 MG CAPSULE PO SCH (09:50)
[2020-10-02] MEDS: LIDOCAINE 5% (PATCH) 1 EA PATCH TP SCH (09:51)
[2020-10-02] MEDS: ENSURE ENLIVE 237 ML LIQUID (VANILLA) PO SCH ×2 (09:51→13:07)
[2020-10-02] MEDS: CHOLECALCIFEROL 1,000 UNIT TABLET (VIT D3) PO SCH (09:51)
[2020-10-02] MEDS: ASCORBIC ACID 500 MG TABLET PO SCH (09:51)
[2020-10-02] MEDS: MULTIVIT W/MINERALS 1 TAB TABLET PO SCH (09:51)
[2020-10-02] MEDS: FERROUS SULFATE (325 MG) 325 MG/TAB TABLET PO SCH (09:51)
[2020-10-02] MEDS ORDERED: FERR325T28 PO (09:58)
[2020-10-02] MEDS ORDERED: MERO1VIA23 IV (09:58)
[2020-10-02 12:00] VITALS: BP 136/67
--- NOTE | 2020-10-02 18:35 | NUR ---
PATIENT DISCHARGED FROM HOSPITAL IN STABLE CONDITION. DISCHARGE INSTRUCTIONS AND PAPERWORK PROVIDED FOR CLIENT PRIOR TO DISCHARGE. CALLED AND GAVE REPORT TO EVY AT [facility]. PATIENT PICKED UP BY AMBULANCE FOR TRANSPORTATION. CARE TRANSFERRED OVER TO [facility].
== END 2020-10-02 16:56 | DRG 682 ==
LOC: ER 13:40 → MEDSG1 17:17
PROVIDERS: ADMIT Internal Medicine; ATTEND Family Medicine
DX: N17.0 Acute kidney failure with tubular necrosis (principal); G93.41 Metabolic encephalopathy; R53.2 Functional quadriplegia; N39.0 Urinary tract infection, site not specified; Z16.12 Extended spectrum beta lactamase (ESBL) resistance; J90 Pleural effusion, not elsewhere classified; R64 Cachexia; M46.22 Osteomyelitis of vertebra, cervical region; G35 Multiple sclerosis; Z86.16 Personal history of COVID-19; Z66 Do not resuscitate; Z20.822 Contact with and (suspected) exposure to COVID-19; E78.5 Hyperlipidemia, unspecified; K21.9 Gastro-esophageal reflux disease without esophagitis; M19.90 Unspecified osteoarthritis, unspecified site; Z91.81 History of falling; Z96.642 Presence of left artificial hip joint; Z79.899 Other long term (current) drug therapy; M48.02 Spinal stenosis, cervical region; B96.20 Unspecified Escherichia coli [E. coli] as the cause of diseases classified elsewhere; N32.89 Other specified disorders of bladder; D64.9 Anemia, unspecified; R74.01 Elevation of levels of liver transaminase levels; E04.2 Nontoxic multinodular goiter; F03.90 Unspecified dementia, unspecified severity, without behavioral disturbance, psychotic disturbance, mood disturbance, and anxiety; L89.90 Pressure ulcer of unspecified site, unspecified stage; I67.2 Cerebral atherosclerosis; I70.0 Atherosclerosis of aorta; M85.80 Other specified disorders of bone density and structure, unspecified site; M06.9 Rheumatoid arthritis, unspecified; N28.89 Other specified disorders of kidney and ureter
CPT/HCPCS: 36415; 70450-TC; 71045-TC; 71250-TC; 71260-TC; 72125-TC; 74178; 76536-TC; 76700-TC; 80048-TC; 80053-TC; 80061-TC; 80076-TC; 81001; 82728-TC; 82784; 83540-TC; 83615-TC; 83690-TC; 83735-TC; 84100-TC; 84155; 84165; 84439-TC; 84443-TC; 84484-TC; 85025-TC; 86334; 86800; 87081-TC; 87086-TC; 87186-TC; 92526; 92611-TC; G0378; J0696; J2185; J3490; J7030; J7050; J7060; Q9967; U0003

== ENCOUNTER 2020-11-20 15:16 | Inpatient (IN) | payer MEDICARE, OTHER ==
[~2020-11-20] VITALS: Ht 162.6 cm; Wt 40.4 kg
[~2020-11-20 15:16] MED LIST changes: +AMIN30LI2 PO; +FERR325T28 PO; +MERO1VIA23 IV; -MIRT7.5T10 PO; +MULT-447 PO; -NAPR-1164 PO; -ONDA-97 PO; +TRAM50TA2 PO
[2020-11-20 16:24] LABS: BASOPHILS # (AUTO) 0.1 K/uL (0.0-0.2); BASOPHILS % (AUTO) 0.8 % (0.0-2.0); EOSINOPHILS % (AUTO) 1.3 % (0.0-6.0); HEMATOCRIT 36 % (33-45); HEMOGLOBIN 11.8 g/dL (11.5-14.8); LYMPHOCYTES # (AUTO) 1.5 K/uL (0.8-4.8); LYMPHOCYTES % (AUTO) 22.3 % (20.0-44.0); MEAN CORPUSCULAR HGB CONC 33 g/dl (31.0-36.0); MEAN CORPUSCULAR VOLUME 91 fL (82-100); MONOCYTES # (AUTO) 0.5 K/uL (0.1-1.30); MONOCYTES % (AUTO) 7.2 % (2.0-12.0); NEUTROPHILS # (AUTO) 4.7 K/uL (1.8-8.9); NEUTROPHILS % (AUTO) 68.4 % (43.0-81.0); PLATELET COUNT (AUTO) 298 K/uL (150-450); RED BLOOD CELL COUNT(AUTO) 3.94 MIL/uL (4.0-5.2); WHITE BLOOD COUNT (AUTO) 6.9 K/uL (4.3-11.0)
--- NOTE | 2020-11-20 16:29 | NUR ---
Pt reclining in bed NO obvious distress. Smiles and is able to answer to simple questions
[2020-11-20] MEDS ORDERED: IV NS 0.9% 1,000 ML BAG IV ONE (16:30)
[2020-11-20 16:37] LABS: CALCIUM, SERUM 8.4 mg/dL (8.5-10.1); CARBON DIOXIDE 25 mmol/L (21-32); CHLORIDE 105 mmol/L (98-107); CREATININE 0.7 mg/dL (0.6-1.3); GLUCOSE 109 mg/dL (74-106); POTASSIUM 4.4 mmol/L (3.5-5.1); SODIUM SERUM 138 mmol/L (136-145); UREA NITROGEN, BLOOD 16 mg/dL (7-18)
[2020-11-20 16:42] LABS: ALANINE AMINOTRANSFERASE 67 U/L (12-78); ALBUMIN 2.5 g/dL (3.4-5.0); ALKALINE PHOSPHATASE 334 U/L (46-116); ASPARTATE AMINOTRANSFERASE 45 U/L (15-37); BILIRUBIN,DIRECT 0.1 mg/dL (0.0-0.2); BILIRUBIN,TOTAL 0.4 mg/dL (0.2-1.0); LIPASE 247 U/L (73-393); MAGNESIUM 2.2 mg/dL (1.8-2.4); TOTAL PROTEIN, SERUM 6.2 g/dL (6.4-8.2)
[2020-11-20] MEDS ORDERED: MAG HYDROX/AL HYDROX/SIMETH 30 ML UDC PO PRN (17:30)
[2020-11-20] MEDS ORDERED: Z GUARD REMEDY 2 OZ OINT TP PRN (17:30)
[2020-11-20] MEDS ORDERED: ONDANSETRON HCL/PF 4 MG/2 ML VIAL IVP PRN (17:30)
[2020-11-20] MEDS ORDERED: ACETAMINOPHEN 325 MG TABLET PO PRN (17:30)
[2020-11-20] MEDS ORDERED: MAGNESIUM HYDROXIDE 30 ML UDC PO PRN (17:30)
[2020-11-20] MEDS ORDERED: TEMAZEPAM 15 MG CAPSULE PO PRN (17:30)
[2020-11-20] MEDS ORDERED: ARGI1POW13 PO (17:38)
[2020-11-20] MEDS ORDERED: TRAM50TA2 PO (17:38)
[2020-11-20] MEDS ORDERED: FERR325T23 PO (17:38)
[2020-11-20] MEDS ORDERED: MEGE400O6 PO (17:38)
[2020-11-20 17:44] LABS: THYROID STIMULATING HORMONE 1.767 uIU/mL (0.358-3.74)
[2020-11-20] MEDS: ENOXAPARIN SODIUM 30 MG/0.3 ML DISP.SYRIN SQ SCH (18:30)
--- NOTE | 2020-11-20 19:22 | NUR ---
Awaiting admission. NO obvious distress report to Sally
--- NOTE | 2020-11-20 20:08 | NUR ---
MS 106
--- NOTE | 2020-11-20 20:20 | NUR ---
PT WAS TRANSFERRED TO 106 UNDER ACLS
[2020-11-20 20:25] VITALS: BP 92/56
[2020-11-20] MEDS: IV D5/ 0.9% NACL 1,000 ML IV PRN (20:50)
[2020-11-21] VITALS: BP 96/57
[2020-11-21 04:00] VITALS: BP 96/57
[2020-11-21 06:43] LABS: EOSINOPHILS % (AUTO) 1.2 % (0.0-6.0); HEMATOCRIT 31 % (33-45); HEMOGLOBIN 10.4 g/dL (11.5-14.8); LYMPHOCYTES # (AUTO) 1.4 K/uL (0.8-4.8); LYMPHOCYTES % (AUTO) 28.4 % (20.0-44.0); MEAN CORPUSCULAR HGB CONC 34 g/dl (31.0-36.0); MEAN CORPUSCULAR VOLUME 91 fL (82-100); MONOCYTES # (AUTO) 0.4 K/uL (0.1-1.30); MONOCYTES % (AUTO) 7.8 % (2.0-12.0); NEUTROPHILS % (AUTO) 61.6 % (43.0-81.0); PLATELET COUNT (AUTO) 230 K/uL (150-450); RED BLOOD CELL COUNT(AUTO) 3.42 MIL/uL (4.0-5.2); WHITE BLOOD COUNT (AUTO) 4.8 K/uL (4.3-11.0)
[2020-11-21 07:03] LABS: CALCIUM, SERUM 7.7 mg/dL (8.5-10.1); CARBON DIOXIDE 21 mmol/L (21-32); CHLORIDE 112 mmol/L (98-107); CREATININE 0.5 mg/dL (0.6-1.3); GLUCOSE 92 mg/dL (74-106); MAGNESIUM 2.1 mg/dL (1.8-2.4); PHOSPHORUS 2.9 mg/dL (2.5-4.9); POTASSIUM 3.7 mmol/L (3.5-5.1); SODIUM SERUM 142 mmol/L (136-145); UREA NITROGEN, BLOOD 13 mg/dL (7-18)
[2020-11-21 07:06] LABS: CHOLESTEROL 142 mg/dL (<200); HDL CHOLESTEROL 42 mg/dL (40-60); LDL 81 mg/dL (0-99); TRIGLYCERIDES 60 mg/dL (30-150)
[2020-11-21] MEDS: PANTOPRAZOLE 40 MG TABLET.DR PO SCH (07:30)
[2020-11-21] MEDS: ENSURE ENLIVE CHOC 237 ML CAN PO SCH ×3 (08:00→16:54)
--- NOTE | 2020-11-21 11:07 | NUR ---
WOUND CARE CONSULT: REVIEWED CHART, NURSING DOCUMENTATION AND PHOTOS WHICH INDICATE WOUNDS AND DISCOLORATIONS, PRESENT ON ADMISSION. DR MCGREGOR NOTIFIED OF SURGICAL CONSULT REQUEST. RECOMMENDATIONS MADE FOR SKIN PROTECTION. DISCUSSED WITH NURSING STAFF. MD IN AGREEMENT WITH PLAN OF CARE.
[2020-11-21 14:37] VITALS: BP 122/69
[2020-11-21] MEDS: ENOXAPARIN SODIUM 30 MG/0.3 ML DISP.SYRIN SQ SCH (17:01)
--- NOTE | 2020-11-21 19:35 | NUR ---
MS1 RN NOTES RECEIVED LYING COMFORTABLY ON BED,A/O X1-2,ABLE TO ANSWER SIMPLE QUESTION,BREATHING NON LABORED ,ON ROOM AIR.PRESENT IVF INFUSING WELL ON RIGHT FORE ARM SALINE LOCK,SITE PATENT.DRESSING TO SACRAL AREA INTACT AND DRY.REPOSITION PER PROTOCOL,CALL LIGHT IN REACH,NEEDS ANTICIPATED.
--- NOTE | 2020-11-21 19:35 | NUR ---
POC for Calorie count discussed with Resawyer. Diet changed to mechanical soft with ensure. Endorsed to Floridalma RN for continuation of care. No significant changes in patient condition. No S/S of respiratory distress on room air. Encouraged PO intake. Yessy-care with brief changed. Wound care precautions with repositioning q 2h. Peripheral IV right forearm 20 gauge patent infusing D5NS at 75 ml/h. No S/S infiltration. Safety measures in place. HOB elevated. Side rails up x 3. Bed locked in low position. Call light within reach.
[2020-11-21 20:00] VITALS: BP 92/50
[2020-11-22 04:00] VITALS: BP_SYST 107; BP_SYST 155; BP_DIAS 57; BP_DIAS 68
--- NOTE | 2020-11-22 04:00 | NUR ---
MS1 RN NOTES IV SITE LEAKING,NEW SALINE LOCK PLACE ON LEFT FOREARM #22,SAME IVF INFUSING.
[2020-11-22] MEDS: IV D5/ 0.9% NACL 1,000 ML IV PRN ×2 (04:13→17:58)
--- NOTE | 2020-11-22 06:27 | NUR ---
MS1 RN NOTES SLEPT WELL AT NIGHT,DENIES ANY DISCOMFORTS.IVF INFUSING WELL VIA IV PUMP.IN NO ACUTE DISTRESS,CALL LIGHT IN REACH,NEEDS ATTENDED.
--- NOTE | 2020-11-22 07:30 | NUR ---
RN NOTE PATIENT OBSERVED ON BED, AWAKE, ALERT AND ORIENTED X2, HOB ELEVATED FOR ASPIRATION PRECAUTION, BREATHING EVEN AND UNLABORED, FOR STRICT MEAL INTAKE MONITORING, IVF RUNNING AND INFUSING WELL, ASSISTED BY EXTRACTION SUPERVISOR WITH BREAKFAST AT THIS TIME, PATIENT MADE COMFORTABLE, BED WHEELS LOCK, SAFETY MEASURES OBSERVED, BED ALARM ON, WEIGHT PATIENT ORDERED, WILL CONTINUE TO MONITOR,
[2020-11-22 08:00] VITALS: BP 113/60
[2020-11-22] MEDS: ENSURE ENLIVE CHOC 237 ML CAN PO SCH ×3 (08:15→17:02)
[2020-11-22] MEDS: PANTOPRAZOLE 40 MG TABLET.DR PO SCH (08:16)
[2020-11-22] MEDS ORDERED: ACETAMINOPHEN 325 MG TABLET PO PRN ×3 (09:30)
[2020-11-22] MEDS ORDERED: TRAMADOL HCL 50 MG TABLET PO PRN (09:30)
[2020-11-22] MEDS ORDERED: MAGNESIUM HYDROXIDE 30 ML UDC PO PRN (09:30)
[2020-11-22] MEDS ORDERED: HOME MED MISCELLANEOUS XX SCH (09:30)
[2020-11-22] MEDS ORDERED: ACETAMINOPHEN ES 500 MG TABLET PO PRN (10:00)
[2020-11-22] MEDS: CHOLECALCIFEROL 1,000 UNIT TABLET (VIT D3) PO SCH (10:35)
--- NOTE | 2020-11-22 13:00 | NUR ---
RN NOTE SEEN BY ELISABET MCCLENDON, UA COLLECTED ORDERED, LABORATORY NOTIFIED ACQUIRED URINE SAMPLE.
[2020-11-22 15:08] LABS: BILIRUBIN,URINE NEGATIVE (NEGATIVE); COLOR,URINE YELLOW (YELLOW); LEUKOCYTE ESTERASE ,URINE NEGATIVE (NEGATIVE); NITRITE, URINE NEGATIVE (NEGATIVE); PH,URINE 6.5 (5.0-8.0); PROTEIN,URINE NEGATIVE (NEGATIVE); UGLUCOSE NEGATIVE (NEGATIVE)
[2020-11-22 15:14] LABS: BACTERIA,URINE 4+ /HPF (None Seen); RBC,URINE 0-2 /HPF (0-2); SQUAMOUS EPITHELIAL CELL,UR Few /HPF (None Seen)
[2020-11-22 16:00] VITALS: BP 105/59
[2020-11-22] MEDS: DOCUSATE SODIUM 100 MG CAPSULE PO SCH (17:12)
[2020-11-22] MEDS: PROSOURCE / PROSTAT (PYXIS) 30 ML UDC PO SCH (17:12)
[2020-11-22] MEDS: MEGESTROL ACETATE SUSP 400 MG/10 ML UDC PO SCH (17:12)
[2020-11-22] MEDS: FERROUS SULFATE (325 MG) 325 MG/TAB TABLET PO SCH (17:12)
[2020-11-22] MEDS: ENOXAPARIN SODIUM 30 MG/0.3 ML DISP.SYRIN SQ SCH (17:46)
[2020-11-22] MEDS: ARGININE/GLUTAMINE/CALCIUM BMB 1 EACH POWD.PACK PO SCH (17:55)
--- NOTE | 2020-11-22 18:37 | NUR ---
RN NOTE PATIENT OBSERVED IN BED, AWAKE ALERT AND ORIENTED X2, UNABLE TO VERBALIZE NEEDS, NEEDS ANTICIPATED, BREATHING EVEN AND UNLABORED, O2 SAT OF 98% ON ROOM AIR, ON STRICT CALORIE COUNT, FILLED OUT DIETARY SHEET ORDERED, LEFT CALORIE COUNT TO THE NURSES STATION WITH THE CHARGE NURSE ORDERED, ASSISTED WITH MEALS AND SUPPLEMENTED WITH ENSURE, PATIENT ON IVF HYDRATION ORDERED, PATENT AND INFUSING WELL, NO S/S OF INFILTRATION, PATIENT AFEBRILE AT THIS TIME. WOUND TREATMENT DONE ORDERED, EGD CONSENT OBTAINED WITH RP , PATIENT MADE COMFORTABLE, BED WHEELS LOCK, BED ALARM ON, CALL LIGHT WITHIN REACH, WILL CONTINUE TO MONITOR, WILL ENDORSE TO NOC SHIFT.
--- NOTE | 2020-11-22 19:15 | NUR ---
RN OPENING NOTE PATIENT RECEIVED IN BED, AWAKE, ALERT AND ORIENTED X2, HOB ELEVATED FOR ASPIRATION PRECAUTION, BREATHING EVEN AND UNLABORED, NO RESP. DISTRESS NOTED. DENIES ANY PAIN. STRICT MEAL INTAKE MONITORING, IVF RUNNING AND INFUSING WELL THROUGH (R) FA 20G. ON MECHANICAL SOFT DIET WITH FREQUENT INTAKE ENCOURAGEMENT. SAFETY MEASURES IMPLEMENTED. BED ALARM ON, BED LOWEST POSITION, CALL LIGHT WITHIN REACH AND SIDE RAILS UP X3. NO ACUTE DISTRESS NOTED AT THIS TIME. Addendum: 11/23/20 at 0554 by MACHELLE UMANA RN CURRENT INFUSING IV : LEFT FA IV 22G PATENT FLUSHED AND INTACT
[2020-11-22 20:00] VITALS: BP 91/53
[2020-11-23 04:00] VITALS: BP 105/62
[2020-11-23] MEDS: IV D5/ 0.9% NACL 1,000 ML IV PRN (05:22)
--- NOTE | 2020-11-23 06:41 | NUR ---
RN CLOSING NOTE PATIENT CURRENTLY IN BED AND RESTING. DENIES ANY PAIN. A/O X2 BREATHING EVEN AND UNLABORED, O2 SAT OF 98% ON ROOM AIR, ON STRICT CALORIE COUNT DURING MORNING MEALS AND SNACKS PRN. PATIENT ON IVF HYDRATION ORDERED AND TOLERATING WELL. (L) FA 22G IV PATENT AND INFUSING WELL, NO S/S OF INFILTRATION, PATIENT AFEBRILE AT THIS TIME. PATIENT KEPT CLEAN AND DRY THROUGHOUT SHIFT. WOUND TREATMENT DONE ORDERED AND TOLERATED WELL. SAFETY MEASURES IMPLEMENTED, BED WHEELS LOCK, BED ALARM ON, CALL LIGHT WITHIN REACH, HOB ELEVATED, SIDE RAILS UP X3. NO ACUTE DISTRESS NOTED AT THIS TIME, WILL ENDORSE CONTINUITY OF CARE TO MORNING SHIFT RN
--- NOTE | 2020-11-23 07:15 | NUR ---
RN NOTE PATIENT OBSERVED ON BED, AWAKE AND ORIENTED X2, VERBALLY RESPONSIVE, BREATHING EVEN AND UNLABORED, INCONTINENT ON BOWEL AND BLADDER, LEFT FOREARM IV F D5NS@75CC/HR, NO AM LABS WILL FOLLOW UP WITH MD, BED WHEELS LOCK, CALL LIGHT WITHIN REACH, SAFETY MEASURES OBSERVED, WILL CONTINUE TO MONITOR.
[2020-11-23 08:00] VITALS: BP 98/56
[2020-11-23] MEDS: PROSOURCE / PROSTAT (PYXIS) 30 ML UDC PO SCH (08:17)
[2020-11-23] MEDS: PANTOPRAZOLE 40 MG TABLET.DR PO SCH (08:18)
[2020-11-23] MEDS ORDERED: TRAMADOL HCL 50 MG TABLET PO SCH (09:00)
[2020-11-23] MEDS ORDERED: MULTIVITAMINS,THERAGRAN 1 UDTAB TABLET PO SCH (09:00)
[2020-11-23] MEDS ORDERED: CALCIUM CARBONATE 500 MG TAB.CHEW PO SCH (09:00)
[2020-11-23] MEDS ORDERED: ASCORBIC ACID 500 MG TABLET PO SCH (09:00)
[2020-11-23] MEDS: ENSURE ENLIVE CHOC 237 ML CAN PO SCH ×2 (09:08→12:11)
[2020-11-23] MEDS: DOCUSATE SODIUM 100 MG CAPSULE PO SCH (09:15)
[2020-11-23] MEDS: CHOLECALCIFEROL 1,000 UNIT TABLET (VIT D3) PO SCH (09:15)
[2020-11-23] MEDS: MEGESTROL ACETATE SUSP 400 MG/10 ML UDC PO SCH (09:15)
[2020-11-23] MEDS: FERROUS SULFATE (325 MG) 325 MG/TAB TABLET PO SCH (09:16)
[2020-11-23] MEDS: ARGININE/GLUTAMINE/CALCIUM BMB 1 EACH POWD.PACK PO SCH (09:35)
[2020-11-23 12:00] VITALS: BP 100/59
--- NOTE | 2020-11-23 16:21 | NUR ---
RN NOTE PATIENT DISCHARGE GAVE REPORT TO [facility] TO [facility] RN, PATIENT DISCHARGE ON STABLE CONDITION, VTS WNL NOT IN DISTRESS, TRANSPORTED VIA GURNEY.
[2020-11-23] MEDS ORDERED: ARGININE/GLUTAMINE/CALCIUM BMB 1 EACH POWD.PACK PO SCH (17:00)
== END 2020-11-23 16:20 | DRG 640 ==
LOC: ER 15:16 → MEDSG1 20:11
PROVIDERS: ADMIT Nurse Practitioner Acute Care; ATTEND Nurse Practitioner Acute Care
DX: R62.7 Adult failure to thrive (principal); L89.153 Pressure ulcer of sacral region, stage 3; E43 Unspecified severe protein-calorie malnutrition; Z68.1 Body mass index [BMI] 19.9 or less, adult; R64 Cachexia; E86.0 Dehydration; M06.9 Rheumatoid arthritis, unspecified; K21.9 Gastro-esophageal reflux disease without esophagitis; G35 Multiple sclerosis; E83.51 Hypocalcemia; Z20.822 Contact with and (suspected) exposure to COVID-19; Z86.16 Personal history of COVID-19; E78.5 Hyperlipidemia, unspecified; I10 Essential (primary) hypertension; Z91.81 History of falling; Z96.642 Presence of left artificial hip joint; Z79.899 Other long term (current) drug therapy; M19.90 Unspecified osteoarthritis, unspecified site; L89.226 Pressure-induced deep tissue damage of left hip; F03.90 Unspecified dementia, unspecified severity, without behavioral disturbance, psychotic disturbance, mood disturbance, and anxiety
CPT/HCPCS: 36415; 71045-TC; 80048-TC; 80061-TC; 80076-TC; 81001; 83690-TC; 83735-TC; 84100-TC; 84439-TC; 84443-TC; 84484-TC; 85025-TC; 85730-TC; 87086-TC; 92526; 92611-TC; G0378; J1650; J7042; U0003

== ENCOUNTER 2022-09-24 17:51 | Inpatient (IN) | payer MEDICARE, OTHER ==
[~2022-09-24] VITALS: Ht 152.4 cm; Wt 35.8 kg
[~2022-09-24 17:51] MED LIST changes: +ARGI1POW13 PO; +FERR325T23 PO; -FERR325T28 PO; +MEGE400O6 PO; -MERO1VIA23 IV
--- NOTE | 2022-09-24 18:30 | NUR ---
Patient brenda, from snf, sent by PMD for GT placement poor oral intake. Osorio cath in placed attached to drainage bag. Kept comfortable, will continue to monitor accordingly.
[2022-09-24] MEDS ORDERED: ACET-868 PO (18:32)
[2022-09-24] MEDS ORDERED: ASCO-352 PO (18:32)
[2022-09-24] MEDS ORDERED: POLY17PO4 PO (18:32)
[2022-09-24] MEDS ORDERED: MEGE625O5 PO (18:32)
[2022-09-24] MEDS ORDERED: CALC500T52 PO (18:32)
[2022-09-24] MEDS ORDERED: BISA10SU11 RC (18:32)
[2022-09-24] MEDS ORDERED: DOCU-141 PO (18:32)
[2022-09-24] MEDS ORDERED: MIRT7.5T10 PO (18:32)
[2022-09-24] MEDS ORDERED: PANT20TA17 PO (18:32)
[2022-09-24] MEDS ORDERED: ACET-2605 PO (18:32)
[2022-09-24] MEDS ORDERED: CHOL100043 PO (18:32)
[2022-09-24] MEDS ORDERED: MULT-447 PO (18:32)
[2022-09-24] MEDS ORDERED: SENN-261 PO (18:32)
[2022-09-24] MEDS ORDERED: TRAM50TA2 PO (18:32)
[2022-09-24] MEDS ORDERED: ARGI1POW13 PO (18:32)
[2022-09-24] MEDS ORDERED: ZINC50TA69 PO (18:32)
[2022-09-24] MEDS ORDERED: OMEG1CAP PO (18:32)
[2022-09-24 18:37] LABS: BASOPHILS # (AUTO) 0.1 K/uL (0.0-0.2); BASOPHILS % (AUTO) 0.6 % (0.0-2.0); EOSINOPHILS % (AUTO) 0.9 % (0.0-6.0); HEMATOCRIT 33 % (33-45); HEMOGLOBIN 10.2 g/dL (11.5-14.8); LYMPHOCYTES % (AUTO) 17.6 % (20.0-44.0); MEAN CORPUSCULAR HGB CONC 31 g/dl (31.0-36.0); MEAN CORPUSCULAR VOLUME 87 fL (82-100); MONOCYTES # (AUTO) 0.7 K/uL (0.1-1.30); MONOCYTES % (AUTO) 6.4 % (2.0-12.0); NEUTROPHILS # (AUTO) 8.3 K/uL (1.8-8.9); NEUTROPHILS % (AUTO) 74.5 % (43.0-81.0); PLATELET COUNT (AUTO) 442 K/uL (150-450); RED BLOOD CELL COUNT(AUTO) 3.74 MIL/uL (4.0-5.2); WHITE BLOOD COUNT (AUTO) 11.2 K/uL (4.3-11.0)
--- NOTE | 2022-09-24 18:40 | NUR ---
covid and MRSA swab collected and sent to lab
--- NOTE | 2022-09-24 18:48 | NUR ---
MOVE SHEET SUBMITTED.
[2022-09-24 18:51] LABS: CREATININE 0.9 mg/dL (0.6-1.3); POTASSIUM 4.5 mmol/L (3.5-5.1)
--- NOTE | 2022-09-24 19:28 | NUR ---
[facility] PAGED
[2022-09-24] MEDS ORDERED: IV NS 0.9% 1,000 ML IV ONE (19:30)
[2022-09-24 20:00] VITALS: BP 101/60
[2022-09-24] MEDS ORDERED: ACETAMINOPHEN 650 MG/SUPP.RECT RC PRN (20:30)
[2022-09-24] MEDS ORDERED: Z GUARD REMEDY 4 OZ OINT TP PRN (20:30)
[2022-09-24] MEDS ORDERED: ACETAMINOPHEN 325 MG TABLET PO PRN (20:30)
[2022-09-24] MEDS ORDERED: MAGNESIUM HYDROXIDE 30 ML UDC PO PRN (20:30)
[2022-09-24] MEDS ORDERED: ONDANSETRON HCL/PF 4 MG/2 ML VIAL IVP PRN (20:30)
--- NOTE | 2022-09-24 21:00 | NUR ---
Alma vargas in EDM - 09/24/22 at 2137 by ANISHA OLD IFC F16 REMOVED, REPLACED BY NEW IFC F16, MINIMAL OUTPUT. NOT ENOUGH FOR URINALYSIS
--- NOTE | 2022-09-24 21:17 | NUR ---
D/C FC FROM [facility]. INSERTED 16FR F/C.
--- NOTE | 2022-09-24 21:19 | NUR ---
REPORT GIVEN TO MENDOZA BERKOWITZ RN FOR TRINITY
--- NOTE | 2022-09-24 21:45 | NUR ---
PT TRANSFERRING TO [facility] VIA HOSPITAL PROTOCOL
[2022-09-24 22:00] VITALS: BP 101/60
--- NOTE | 2022-09-24 22:00 | NUR ---
ASSEMBLY LINE SUPERVISOR NOTE PATIENT WAS TRANSFERRED FROM THE ER , AND ADMITTED WITH PRIMARY DIAGNOSIS OF FAILURE TO THRIVE. PATIENT IS NPO DUE TO UNABLE TO SWALLOW, PATIENT HAS IV ACCESS OF THE LEFT AC ARM #18G 1/2 NS D5 RUNNING AT 75 ML/HR .PATIENT IS ON O2 VIA NC AT 2LPM, BREATHING NON LABORED , O2 SAT 98%. NOTED WITH FC IN PLACE DRAINING URINE TO GRAVITY. SKIN ASSESSMENT DONE, PICTURES TAKEN AND WILL BE PLACED ON CHART, ADMISSION CARE RENDERED, SAFETY MEASURES IN PLACED, INSTRUCTED PT TO USE CALL LIGHT FOR ASSISTANCE. WILL CONTINUE TO MONITOR THROUGHOUT THE SHIFT.
[2022-09-24] MEDS: IV D5/0.45 NACL 1,000 ML IV PRN (22:20)
[2022-09-24 23:08] LABS: COLOR,URINE DARK YELLOW (YELLOW)
[2022-09-24 23:09] LABS: BILIRUBIN,URINE NEGATIVE (NEGATIVE); PROTEIN,URINE 4+ mg/dl (NEGATIVE); UGLUCOSE NEGATIVE (NEGATIVE)
[2022-09-24 23:10] LABS: BACTERIA,URINE Moderate /HPF (None Seen); LEUKOCYTE ESTERASE ,URINE LARGE (NEGATIVE); NITRITE, URINE POSITIVE (NEGATIVE); RBC,URINE 51-80 /HPF (0-2); SQUAMOUS EPITHELIAL CELL,UR Few /HPF (None Seen); UROBILINOGEN,URINE 0.2 EU/dL (0.2)
[2022-09-25] MEDS ORDERED: CEFEPIME 1 GM in IV D5W 50 ML IV ONE (01:00)
[2022-09-25] MEDS ORDERED: VANCOMYCIN HCL 0.75 GM in IV D5W 250 ML IV ONE (01:30)
[2022-09-25] MEDS ORDERED: VANCOMYCIN 1 GM VIAL ONE (01:47)
[2022-09-25] MEDS ORDERED: CEFEPIME 1 GM VIAL ONE (01:48)
[2022-09-25 04:00] VITALS: BP 95/55
[2022-09-25 06:19] LABS: BASOPHILS # (AUTO) 0.1 K/uL (0.0-0.2); BASOPHILS % (AUTO) 0.8 % (0.0-2.0); EOSINOPHILS % (AUTO) 1.5 % (0.0-6.0); HEMATOCRIT 29 % (33-45); HEMOGLOBIN 9.1 g/dL (11.5-14.8); LYMPHOCYTES # (AUTO) 1.5 K/uL (0.8-4.8); LYMPHOCYTES % (AUTO) 16.7 % (20.0-44.0); MEAN CORPUSCULAR HGB CONC 32 g/dl (31.0-36.0); MEAN CORPUSCULAR VOLUME 87 fL (82-100); MONOCYTES # (AUTO) 0.5 K/uL (0.1-1.30); MONOCYTES % (AUTO) 6.2 % (2.0-12.0); NEUTROPHILS # (AUTO) 6.6 K/uL (1.8-8.9); NEUTROPHILS % (AUTO) 74.8 % (43.0-81.0); PLATELET COUNT (AUTO) 327 K/uL (150-450); WHITE BLOOD COUNT (AUTO) 8.8 K/uL (4.3-11.0)
--- NOTE | 2022-09-25 06:52 | NUR ---
WELDER FIRST CLASS CLOSING NOTES: PATIENT REMAINS IN BED, SLEEPING BUT EASILY AROUSABLE. PT IS ALERT/ORIENTED X 2, MALDIVIAN SPEAKING. ON O2 AT 2L/MIN VIA N/C AND PT TOLERATED WELL. IV ACCESS ON LAC #18G, INTACT AND PATENT RUNNING D5 1/2 NS AT 75 ML/HR, PT HAS CALDERON CATHETER, DRAINING TO MINIMAL URINE. NO C/O PAIN OR DISCOMFORT. NO ACUTE DISTRESS. ALL SAFETY MEASURES IN PLACE. BED IN LOWEST POSITION AND LOCKED. SIDE RAILS UPX3. ALL DUE MEDS GIVEN, KEPT DRY AND CLEAN, WILL ENDORSE TO AM SHIFT NURSE FOR CONTINUITY OF CARE.
[2022-09-25 06:56] LABS: CALCIUM, SERUM 8.3 mg/dL (8.5-10.1); CREATININE 0.8 mg/dL (0.6-1.3); MAGNESIUM 2.1 mg/dL (1.8-2.4); POTASSIUM 3.7 mmol/L (3.5-5.1)
[2022-09-25 07:08] LABS: THYROID STIMULATING HORMONE 3.174 uIU/mL (0.358-3.74)
--- NOTE | 2022-09-25 07:26 | NUR ---
N/S WIDE OPEN NOT ADMINISTERED IN [facility].
--- NOTE | 2022-09-25 07:45 | NUR ---
MS OPENING NOTES PATIENT RECEIVED IN BED SLEEPING. ON O2 AT 2L/MIN VIA N/C BREATHING EVEN AND UNLABORED WITH NO S/S OF SOB OR RESPIRATORY DISTRESS. IV ACCESS ON LAC #18G, INTACT AND PATENT RUNNING D5 1/2 NS AT 75 ML/HR. CALDERON CATHETER IN PLACE AND DRAINING TO GRAVITY. ALL SAFETY MEASURES IN PLACE WITH BED IN LOWEST POSITION AND LOCKED, SIDE RAILS UPX3 AND CALL LIGHT WITHIN REACH. WILL CONTINUE TO MONITOR.
[2022-09-25 08:00] VITALS: BP 107/57
[2022-09-25] MEDS: HEPARIN SODIUM, PORCINE 5000 UNITS/1 ML VIAL SQ SCH ×2 (09:00→21:23)
[2022-09-25 09:02] LABS: ALBUMIN 1.6 g/dL (3.4-5.0); BILIRUBIN,DIRECT 0.1 mg/dL (0.0-0.2); BILIRUBIN,TOTAL 0.3 mg/dL (0.2-1.0); TOTAL PROTEIN, SERUM 5.7 g/dL (6.4-8.2)
[2022-09-25] MEDS: PANTOPRAZOLE 40 MG VIAL IV SCH (09:50)
--- NOTE | 2022-09-25 10:31 | NUR ---
HEP FOR 0900 HELD PER RESHMA MCCLENDON NP. PEG PLACEMENT PENDING.
--- NOTE | 2022-09-25 12:39 | NUR ---
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 DR MCGREGOR AND DR SANON CALLED FOR SURGICAL AND DPM CONSULTS. DISCUSSED SKIN PROTECTION WITH NURSING STAFF. MD IN AGREEMENT WITH PLAN OF CARE.
[2022-09-25] MEDS ORDERED: CEFEPIME 1 GM in IV D5W 50 ML IV SCH (14:00)
[2022-09-25] MEDS: IV D5/0.45 NACL 1,000 ML IV PRN (14:24)
[2022-09-25] MEDS: CEFEPIME 2 GM in IV D5W 100 ML IV SCH (14:25)
[2022-09-25 16:00] VITALS: BP 88/47
--- NOTE | 2022-09-25 16:01 | NUR ---
MANUAL BP ON PATIENT R ARM 81/51 AND L ARM 89/57. RESHMA MCCLENDON DATE PITTER NOTIFIED. PER DATE PITTER ORDER, WILL SWITCH D5 1/2NS TO D5NS @ 75 ML/HR.
[2022-09-25] MEDS: IV D5/ 0.9% NACL 1,000 ML IV SCH (16:18)
[2022-09-25] MEDS ORDERED: IV D5/ 0.9% NACL 1,000 ML IV SCH (16:30)
[2022-09-25 20:00] VITALS: BP 81/49
--- NOTE | 2022-09-25 20:01 | NUR ---
MS RN CLOSING NOTES PATIENT IN BED RESTING. ALERT AND ORIENTED X1. ITALIAN SPEAKING. CALM AND COOPERATIVE. ON O2 AT 2L/MIN VIA N/C BREATHING EVEN AND UNLABORED WITH NO S/S OF SOB OR RESPIRATORY DISTRESS. IV ACCESS ON LAC #18G, INTACT AND PATENT RUNNING D5NS AT 75 ML/HR. CALDERON CATHETER IN PLACE AND DRAINING MINIMAL URINE TO GRAVITY. RESHMA MCCLENDON HR ADMINISTRATOR NOTIFIED OF LOW OUTPUT. ALL DUE MEDS GIVEN AND PATIENT KEPT CLEAN AND COMFORTABLE. ALL SAFETY MEASURES IN PLACE WITH BED IN LOWEST POSITION AND LOCKED, SIDE RAILS UPX3 AND CALL LIGHT WITHIN REACH. WILL ENDORSE TO ONCOMING SHIFT FOR TRINITY.
[2022-09-25] MEDS ORDERED: IV NS 0.9% 250 ML IV ONE ×2 (21:30→23:30)
[2022-09-25] MEDS: DAKINS QUARTER STRENGTH (0.125%) 480 ML BOTTLE TOP SCH (22:30)
[2022-09-25] MEDS ORDERED: VANCOMYCIN 0.75 GM in IV D5W 250 ML IV SCH (23:00)
[2022-09-25 23:19] VITALS: BP 91/52
[2022-09-26] VITALS: BP 99/56
[2022-09-26 05:37] VITALS: BP 100/52
[2022-09-26] MEDS: IV D5/ 0.9% NACL 1,000 ML IV SCH (05:56)
--- NOTE | 2022-09-26 06:39 | NUR ---
MS RN CLOSING NOTES PATIENT IN BED RESTING. ALERT AND ORIENTED X1-2. CROATIAN SPEAKING. CALM AND COOPERATIVE. ON O2 AT 2L/MIN VIA N/C BREATHING EVEN AND UNLABORED WITH NO S/S OF SOB OR RESPIRATORY DISTRESS. IV ACCESS ON LAC #18G, INTACT AND PATENT RUNNING D5NS AT 75 ML/HR. CALDERON CATHETER IN PLACE AND DRAINING MINIMAL URINE TO GRAVITY. PATIENT KEPT CLEAN AND COMFORTABLE. ALL SAFETY MEASURES IN PLACE WITH BED IN LOWEST POSITION AND LOCKED, SIDE RAILS UPX3 AND CALL LIGHT WITHIN REACH.
--- NOTE | 2022-09-26 07:15 | NUR ---
RN OPENING NOTE PATIENT IN BED RESTING. ALERT AND ORIENTED X1-2. GHANAIAN SPEAKING. CALM AND COOPERATIVE. ON O2 AT 2L/MIN VIA N/C BREATHING EVEN AND UNLABORED WITH NO S/S OF SOB OR RESPIRATORY DISTRESS. IV ACCESS ON LAC #18G, INTACT AND PATENT RUNNING D5NS AT 75 ML/HR. CALDERON CATHETER IN PLACE AND DRAINING MINIMAL URINE TO GRAVITY. PATIENT KEPT CLEAN AND COMFORTABLE. ALL SAFETY MEASURES IN PLACE WITH BED IN LOWEST POSITION AND LOCKED, SIDE RAILS UPX3 AND CALL LIGHT WITHIN REACH.
[2022-09-26 08:00] VITALS: BP 90/52
[2022-09-26] MEDS ORDERED: IV D5/ 0.9% NACL 1,000 ML IV PRN (08:21)
[2022-09-26] MEDS: HEPARIN SODIUM, PORCINE 5000 UNITS/1 ML VIAL SQ SCH ×2 (09:00→20:41)
[2022-09-26] MEDS: PANTOPRAZOLE 40 MG VIAL IV SCH (09:19)
--- NOTE | 2022-09-26 09:24 | NUR ---
HEPARIN SODIUM NOT ADMINISTERED D/T SCHEDULED SURGICAL PROCEDURE PEG PLACEMENT
[2022-09-26] MEDS: DAKINS QUARTER STRENGTH (0.125%) 480 ML BOTTLE TOP SCH (09:26)
[2022-09-26] MEDS: CEFEPIME 2 GM in IV D5W 100 ML IV SCH (14:40)
[2022-09-26 16:00] VITALS: BP 115/54
--- NOTE | 2022-09-26 19:25 | NUR ---
RN CLOSING NOTE PT IN BED ASLEEP. STATUS POST PEG PLACEMENT, CAME FROM SURGERY DEPARTMENT AT 19:25. ON O2 VIA NS AT 2L, WITH NO S/S OF SOB OR RESPIRATORY DISTRESS. BREATHING EVEN AND UNLABORED. LEFT AC IV ACCESS PATENT AND INTACT INFUSING D5 NS AT 75 ML/HR. PER DR ORDER RESUME G-TUBE FEEDING TOMORROW AM. SAFETY PRECAUTIONS IN PLACE WITH HOB ELEVATED, BED IN LOWEST LOCKED POSITION, SIDE RAILS UP X3, WILL ENDORSE TO THE NEXT SHIFT NURSE FOR TRINITY.
--- NOTE | 2022-09-26 19:30 | NUR ---
RN NOTE RECEIVED PT FOR CONTINUITY OF CARE COMING FROM OR POST PEG PLACEMENT. PATIENT A/OX1-2; ALBANIAN SPEAKING IN NO S/SX OF ACUTE DISTRESS AT THIS TIME; CURRENTLY ON 2L OF O2 VIA NC; WITH 02 SAT >95% AT THIS TIME. WITH IV ACCESS ON L AC#18 PATENT, INTACT AND FLUSHING WELL. WITH RUNNING D5NS@75CC/HR. WITH NEW PEG SECURED AND INTACT; CLAMPED. WILL ENSURE SAFETY MEASURES WITHIN THE SHIFT. PATIENT BED ALARM IS ON. HEAD OF BED ELEVATED. BED IS LOCKED, IN LOWEST POSITION AND SIDE RAILS UP. CALL LIGHT WITHIN REACH OF THE PATIENT. WILL CONTINUE TO MONITOR AND REASSESS FOR ANY CHANGES AND WILL CARRY OUT ANY ONGOING AND ACTIVE MD ORDER.
[2022-09-26 20:00] VITALS: BP 103/59
[2022-09-27 04:00] VITALS: BP 105/67
--- NOTE | 2022-09-27 04:00 | NUR ---
RN NOTE PATIENT REMAINED TO BE IN NO SIGNS OF ACUTE RESPIRATORY DISTRESS, SAFE ENVIRONMENT MAINTAINED FOR PT. AM PATIENT CARE ASSISTANCE RENDERED. WILL CONTINUE TO MONITOR AND REASSESS FOR ANY CHANGES THROUGHOUT THE SHIFT.
--- NOTE | 2022-09-27 06:43 | NUR ---
RN NOTE PATIENT REMAINS IN ROOM IN NO SIGNS OF RESPIRATORY DISTRESS, PATIENT STILL ON 2L OF 02 VIA NC ;TOLERATING WELL SATURATING @ >95% SP02. PEG REMAINED SECURED AND INTACT; CLAMPED. SAFETY MEASURES IMPLEMENTED, BED IN LOWEST POSITION, LOCKED, SIDE RAILS UP, CALL LIGHT WITHIN REACH. ALL NEEDS AND ORDERS ADDRESSED DURING THE SHIFT. IV ACCESS MAINTAINED INTACT, SECURED AND FLUSHING WELL. ALL DUE MEDS GIVEN ORDERED & SCHEDULED ; PATIENT TOLERATED WELL. PATIENT KEPT CLEAN AND COMFORTABLE WITHIN THE SHIFT. PLAN: DEITARY CONSULT IN PLACED; MAY START FEEDING TODAY.PATIENT ENDORSED TO INCOMING SHIFT RN WITH STABLE VITAL SIGN AND FOR CONTINUITY OF CARE.
[2022-09-27 07:04] LABS: BASOPHILS % (AUTO) 0.1 % (0.0-2.0); HEMATOCRIT 27 % (33-45); HEMOGLOBIN 8.4 g/dL (11.5-14.8); LYMPHOCYTES # (AUTO) 0.8 K/uL (0.8-4.8); LYMPHOCYTES % (AUTO) 6.9 % (20.0-44.0); MEAN CORPUSCULAR HGB CONC 31 g/dl (31.0-36.0); MEAN CORPUSCULAR VOLUME 85 fL (82-100); MONOCYTES # (AUTO) 0.4 K/uL (0.1-1.30); MONOCYTES % (AUTO) 3.4 % (2.0-12.0); NEUTROPHILS # (AUTO) 10.3 K/uL (1.8-8.9); NEUTROPHILS % (AUTO) 89.6 % (43.0-81.0); PLATELET COUNT (AUTO) 352 K/uL (150-450); RED BLOOD CELL COUNT(AUTO) 3.13 MIL/uL (4.0-5.2); WHITE BLOOD COUNT (AUTO) 11.5 K/uL (4.3-11.0)
--- NOTE | 2022-09-27 07:15 | NUR ---
MS RN OPENING NOTE: RECEIVED PT ALERT AND ORIENTED X1-2. FAROESE SPEAKING. CALM AND COOPERATIVE. ON O2 AT 2L/MIN VIA N/C BREATHING EVEN AND UNLABORED WITH NO S/S OF SOB OR RESPIRATORY DISTRESS. IV ACCESS ON LAC #18G, INTACT AND PATENT RUNNING D5NS AT 75 ML/HR. CALDERON CATHETER IN PLACE AND DRAINING MINIMAL URINE TO GRAVITY. PATIENT KEPT CLEAN AND COMFORTABLE. ALL SAFETY MEASURES IN PLACE WITH BED IN LOWEST POSITION AND LOCKED, SIDE RAILS UPX3 AND CALL LIGHT WITHIN REACH.
[2022-09-27 07:24] LABS: CALCIUM, SERUM 7.5 mg/dL (8.5-10.1); CARBON DIOXIDE 18 mmol/L (21-32); CHLORIDE 113 mmol/L (98-107); CREATININE 0.6 mg/dL (0.6-1.3); GLUCOSE 111 mg/dL (74-106); SODIUM SERUM 141 mmol/L (136-145); UREA NITROGEN, BLOOD 9 mg/dL (7-18)
[2022-09-27 07:33] LABS: POTASSIUM 2.6 mmol/L (3.5-5.1)
[2022-09-27] MEDS: PANTOPRAZOLE 40 MG/PACK PACK PO SCH (08:21)
[2022-09-27] MEDS: HEPARIN SODIUM, PORCINE 5000 UNITS/1 ML VIAL SQ SCH ×2 (08:23→20:21)
[2022-09-27] MEDS: DAKINS QUARTER STRENGTH (0.125%) 480 ML BOTTLE TOP SCH (08:29)
[2022-09-27] MEDS ORDERED: JEVITY 1.2 CAL 1,000 ML BOTTLE GT PRN (08:30)
[2022-09-27] MEDS ORDERED: POTASSIUM CHLORIDE 20 MEQ POWDER PACKET GT ONE ×2 (08:30→12:30)
[2022-09-27] MEDS: POTASSIUM CHLORIDE 20 MEQ POWDER PACKET GT SCH ×5 (08:54→13:26)
[2022-09-27 12:00] VITALS: BP 117/61
[2022-09-27] MEDS: CEFEPIME 2 GM in IV D5W 100 ML IV SCH (13:27)
--- NOTE | 2022-09-27 18:19 | NUR ---
RN CLOSING NOTE PT IN BED AWAKE. STATUS POST PEG PLACEMENT. STARTED ON FEEDING JEVITY 1.2 @20ML/HR. NOTED WITH 5ML RESIDUQAL. ON O2 VIA NS AT 2L, WITH NO S/S OF SOB OR RESPIRATORY DISTRESS. BREATHING EVEN AND UNLABORED. LEFT FOREARM 20G ACCESS PATENT AND INTACT INFUSING D5 NS AT 75 ML/HR. SAFETY PRECAUTIONS IN PLACE WITH HOB ELEVATED, BED IN LOWEST LOCKED POSITION, SIDE RAILS UP X3, WILL ENDORSE TO THE NEXT SHIFT NURSE FOR TRINITY.
--- NOTE | 2022-09-27 19:45 | NUR ---
RN NOTE CALLED ROSARIO MUNIZ AND SECURED CONSENT FOR SERIAL DEBRIDEMENT OF SACRUM AND L HIP, COUNTER VERIFIED WITH ASHLEIGH RÍOS. GENERAL UPDATES ALSO GIVEN TO PT'S SON.
[2022-09-27 20:00] VITALS: BP 111/74
--- NOTE | 2022-09-28 01:00 | NUR ---
RN NOTE INCREASED FEEDING AT 40MLS/HR; NO RESIDUAL FROM CONTINUOUS FEEDING. WILL CONTINUE TO MONITOR
[2022-09-28 04:00] VITALS: BP 120/75
--- NOTE | 2022-09-28 06:40 | NUR ---
RN NOTE PATIENT REMAINS IN ROOM IN NO SIGNS OF RESPIRATORY DISTRESS, PATIENT STILL ON 2L OF 02 VIA NC ;TOLERATING WELL SATURATING @ >95% SP02. ON TUBE FEEDING CURRENTLY RUNNING AT 40MLS/HR (GOAL RATE 50ML/HR), TOLERATES WELL. SAFETY MEASURES IMPLEMENTED, BED IN LOWEST POSITION, LOCKED, SIDE RAILS UP, CALL LIGHT WITHIN REACH. ALL NEEDS AND ORDERS ADDRESSED DURING THE SHIFT. IV ACCESS MAINTAINED INTACT, SECURED AND FLUSHING WELL. ALL DUE MEDS GIVEN ORDERED & SCHEDULED ; PATIENT TOLERATED WELL. PATIENT KEPT CLEAN AND COMFORTABLE WITHIN THE SHIFT. PLAN: WOUND DEBRIDEMENT; CONSENT SECURED. PATIENT ENDORSED TO INCOMING SHIFT RN WITH STABLE VITAL SIGN AND FOR CONTINUITY OF CARE.
--- NOTE | 2022-09-28 07:00 | NUR ---
CEMENT FINISHER APPRENTICE OPENING NOTE PATIENT RESTING IN BED, PATIENT AWAKE, ORIENTED X1, 02 2L N/C SAT 98% NO RESPIRATORY DISTRESS NOTED. G-TUBE FEEDING AT 40ML/HR TOLERATING WELL NO RESIDUAL NOTED. IV ACCESS INTACT. SAFETY MEASURES IN PLACE. BED LOCKED TO THE LOWEST5 POSITION. CALL LIGHT AND TABLE WITHIN REACH. CONT. TO MONITOR.
[2022-09-28] MEDS ORDERED: JEVITY 1.2 CAL 1,000 ML BOTTLE GT PRN (08:00)
[2022-09-28] MEDS ORDERED: PROSOURCE / PROSTAT (PYXIS) 30 ML UDC GT SCH (09:00)
[2022-09-28] MEDS: DAKINS QUARTER STRENGTH (0.125%) 480 ML BOTTLE TOP SCH (09:00)
[2022-09-28] MEDS ORDERED: ARGININE/GLUTAMINE/CALCIUM BMB 1 EACH POWD.PACK GT SCH (09:00)
[2022-09-28] MEDS: PANTOPRAZOLE 40 MG/PACK PACK PO SCH (09:54)
[2022-09-28] MEDS: HEPARIN SODIUM, PORCINE 5000 UNITS/1 ML VIAL SQ SCH (09:59)
[2022-09-28 10:43] LABS: CALCIUM, SERUM 8.2 mg/dL (8.5-10.1); CREATININE 0.7 mg/dL (0.6-1.3)
[2022-09-28 10:50] LABS: ALBUMIN 1.6 g/dL (3.4-5.0); BILIRUBIN,TOTAL 0.5 mg/dL (0.2-1.0); MAGNESIUM 1.6 mg/dL (1.8-2.4); PHOSPHORUS 1.6 mg/dL (2.5-4.9); TOTAL PROTEIN, SERUM 5.7 g/dL (6.4-8.2)
[2022-09-28 11:12] LABS: BASOPHILS % (AUTO) 0.1 % (0.0-2.0); HEMATOCRIT 27 % (33-45); LYMPHOCYTES # (AUTO) 0.6 K/uL (0.8-4.8); LYMPHOCYTES % (AUTO) 3.9 % (20.0-44.0); MEAN CORPUSCULAR HGB CONC 33 g/dl (31.0-36.0); MEAN CORPUSCULAR VOLUME 81 fL (82-100); MONOCYTES # (AUTO) 0.6 K/uL (0.1-1.30); PLATELET COUNT (AUTO) 368 K/uL (150-450); RED BLOOD CELL COUNT(AUTO) 3.34 MIL/uL (4.0-5.2); WHITE BLOOD COUNT (AUTO) 14.1 K/uL (4.3-11.0)
--- NOTE | 2022-09-28 12:00 | NUR ---
HEALTH SAFETY AND ENVIRONMENT MANAGER NOTE GT-FEEDING INCREASED TO 50ML/HR REACHING THE FEEDING GOAL. NO RESIDUAL NOTED.
[2022-09-28] MEDS: CEFEPIME 2 GM in IV D5W 100 ML IV SCH (13:47)
--- NOTE | 2022-09-28 15:30 | NUR ---
PERSONNEL QUALITY ASSURANCE AUDITOR DISCHARGE NOTE PATIENT DISCHARGED TO [facility] VIA AMBULANCE ACCOMPANIED BY TWO SILVER SOLUTION MIXER. PATIENT AWAKE, ALERT ORIENTED X1 02 2L N/C O2 SAT 96% NO RESPIRATORY DISTRESS NOTED. VITAL SIGN STABLE, G-TUBE FLUSHED AND CLAMPED. IV ACCESS REMOVED AND CATHETER TIP INTACT. NO S/S OF INFILTRATION NOTED. F/C IN PLACE DRAINING CLEAR [place]URANG URINE. WOUND CARE PERFORMED DIRECTED AND PICTURES TAKEN PER PROTOCOL.
== END 2022-09-28 15:32 | DRG 640 ==
LOC: ER 18:00 → MEDSG1 20:37
PROVIDERS: ADMIT Nurse Practitioner Family; ATTEND Nurse Practitioner Acute Care
PROC: 0DH63UZ Insertion of Feeding Device into Stomach, Percutaneous Approach (ICD-10-PCS; principal; 2022-09-26)
DX: R62.7 Adult failure to thrive (principal); E43 Unspecified severe protein-calorie malnutrition; L89.154 Pressure ulcer of sacral region, stage 4; L89.224 Pressure ulcer of left hip, stage 4; G92.8 Other toxic encephalopathy; R53.2 Functional quadriplegia; N39.0 Urinary tract infection, site not specified; D68.59 Other primary thrombophilia; F03.94 Unspecified dementia, unspecified severity, with anxiety; R64 Cachexia; Z68.1 Body mass index [BMI] 19.9 or less, adult; J90 Pleural effusion, not elsewhere classified; K21.9 Gastro-esophageal reflux disease without esophagitis; M19.90 Unspecified osteoarthritis, unspecified site; D64.9 Anemia, unspecified; B96.89 Other specified bacterial agents as the cause of diseases classified elsewhere; L89.816 Pressure-induced deep tissue damage of head; L89.216 Pressure-induced deep tissue damage of right hip; E87.6 Hypokalemia; E88.09 Other disorders of plasma-protein metabolism, not elsewhere classified; G35 Multiple sclerosis; Z66 Do not resuscitate; K29.70 Gastritis, unspecified, without bleeding; M06.9 Rheumatoid arthritis, unspecified; M24.561 Contracture, right knee; M24.562 Contracture, left knee; R13.10 Dysphagia, unspecified; L89.890 Pressure ulcer of other site, unstageable; R29.6 Repeated falls; Z20.822 Contact with and (suspected) exposure to COVID-19
CPT/HCPCS: 36415; 43246; 71045-TC; 80048-TC; 80053-TC; 80076-TC; 81001; 83605-TC; 83735-TC; 84100-TC; 84443-TC; 85025-TC; 85730-TC; 87040-TC; 87081-TC; 87086-TC; 92526; 92611-TC; 93307-TC; 97110-TC; 97530-TC; A4217; A4223; A6403; C9113; C9803; G0378; J0692; J1644; J2704; J3370; J3490; J7030; J7042; J7050; J7060